=== PATIENT | female | born 1975 | race African-American/Black ===

== ENCOUNTER 2017-07-27 10:28 | Emergency (ER) | payer OTHER ==
[~2017-07-27] VITALS: Ht 167.6 cm; Wt 86.4 kg
[2017-07-27] MEDS ORDERED: DiphenhydrAMINE HCL 50 MG/ML VIAL ONE (10:57)
[2017-07-27] MEDS ORDERED: LORazepam 2 MG/ML VIAL ONE (10:57)
[2017-07-27] MEDS ORDERED: HALOPERIDOL LACTATE 5 MG/ML VIAL ONE (10:57)
[2017-07-27] MEDS ORDERED: HALOPERIDOL LACTATE 5 MG/ML VIAL IM ONE (11:15)
[2017-07-27] MEDS ORDERED: LORazepam 2 MG/ML VIAL IM ONE (11:15)
[2017-07-27] MEDS ORDERED: DiphenhydrAMINE HCL 50 MG/ML VIAL IM ONE (11:15)
[2017-07-27 12:19] LABS: BASOPHILS % (AUTO) 0.8 % (0.0-2.0); EOSINOPHILS % (AUTO) 0.4 % (1.0-6.0); HEMOGLOBIN 7.9 g/dL (12.0-16.0); LYMPHOCYTES # (AUTO) 2.2 K/uL (1.0-4.8); LYMPHOCYTES % (AUTO) 43.6 % (22.0-44.0); MEAN CORPUSCULAR HGB CONC 33.1 G/dL (31.0-37.0); MEAN CORPUSCULAR VOLUME 82 fL (80-100); MONOCYTES # (AUTO) 0.6 K/uL (0.1-1.0); MONOCYTES % (AUTO) 10.9 % (2.0-9.0); NEUTROPHILS # (AUTO) 2.3 K/uL (1.8-7.7); NEUTROPHILS % (AUTO) 44.3 % (40.0-70.0); PLATELET COUNT (AUTO) 86 K/uL (150-450); RED BLOOD CELL COUNT(AUTO) 2.94 MIL/uL (4.00-5.20); RED CELL DISTRIBUTION WIDTH 19.3 % (11.5-14.5); WHITE BLOOD COUNT (AUTO) 5.1 K/uL (4.5-11.0)
[2017-07-27 12:29] LABS: RBC MORPHOLOGY COMMENT ABNORMAL RBC MORPH
[2017-07-27 12:37] LABS: ANION GAP 12 mmol/L (8-16); CALCIUM, TOTAL 8.1 mg/dL (8.8-10.5); CARBON DIOXIDE 23 mmol/L (22-29); CHLORIDE 105 mmol/L (98-107); CREATININE 0.74 mg/dL (0.60-1.30); GLOMERULAR FILTR. RATE CALC > 60 mL/min (>60); POTASSIUM 3.2 mmol/L (3.5-5.1); SODIUM SERUM 140 mmol/L (136-145); UREA NITROGEN, BLOOD 6 mg/dL (7-18)
[2017-07-27 12:42] LABS: ALANINE AMINOTRANSFERASE 28 U/L (12-78); ALBUMIN 2.1 g/dL (3.4-5.0); ASPARTATE AMINOTRANSFERASE 75 U/L (15-37); BILIRUBIN,TOTAL 2.5 mg/dL (0.1-1.0); TOTAL PROTEIN, SERUM 8.2 g/dL (6.4-8.2)
[2017-07-27] MEDS ORDERED: VANCOMYCIN HCL 1 GM/D5% WATER 200 ML IV ONE (15:15)
[2017-07-27] MEDS ORDERED: MAGNESIUM SULFATE 2 GM, MVI, ADULT NO.1 WITH VIT K 10 ML, THIAMINE HCL 100 MG, FOLIC AC... IV ONE ×5 (16:30)
[2017-07-27 17:18] LABS: GLUCOSE,POINT OF CARE 65 MG/DL (70-110)
[2017-07-27] MEDS ORDERED: POTASSIUM CHLORIDE 20 MEQ ER TABLET PO ONE (17:30)
[2017-07-27 19:52] VITALS: BP 117/51
[2017-07-27 20:40] LABS: GLUCOSE,POINT OF CARE 111 MG/DL (70-110)
== END 2017-07-27 19:44 | disposition home or self-care (01) ==
LOC: EMS 10:35
DX: F10.129 Alcohol abuse with intoxication, unspecified (principal); F14.10 Cocaine abuse, uncomplicated; F17.200 Nicotine dependence, unspecified, uncomplicated; E11.9 Type 2 diabetes mellitus without complications; Y90.8 Blood alcohol level of 240 mg/100 ml or more
CPT/HCPCS: 36415; 80053; 80307; 82962; 84703; 85025; 96365; 96366; 96372; 99285; 99406; G0480; J1200; J1630; J2060; J3411; J3475; J3490 ×2; J7030; J3370

== ENCOUNTER 2021-11-30 00:18 | Emergency (ER) | payer OTHER ==
[~2021-11-30] VITALS: Ht 160 cm; Wt 81.8 kg
[2021-11-30] MEDS ORDERED: LIDOCAINE 5% TRANSDERMAL PATCH TD ONE (01:45)
[2021-11-30] MEDS ORDERED: ACETAMINOPHEN 500 MG TABLET PO ONE (01:45)
[2021-11-30] MEDS ORDERED: IBUPROFEN 600 MG TABLET PO ONE (01:45)
[2021-11-30 04:00] VITALS: BP 140/102
== END 2021-11-30 06:39 | disposition home or self-care (01) ==
LOC: EMS 00:19
DX: M13.861 Other specified arthritis, right knee (principal); M54.50 Low back pain, unspecified; M25.551 Pain in right hip; F20.9 Schizophrenia, unspecified; F17.210 Nicotine dependence, cigarettes, uncomplicated; F19.90 Other psychoactive substance use, unspecified, uncomplicated
CPT/HCPCS: 73502; 73552; 99284

== ENCOUNTER 2022-03-04 23:21 | Inpatient (IN) | payer OTHER ==
[~2022-03-04] VITALS: Ht 160 cm; Wt 69.9 kg
[~2022-03-04 23:21] MED LIST: BUPR-317 PO; CARI3CAP PO; FLUO10CA24 PO; HYDR-4527 PO; TRAZ-252 PO
[2022-03-05] MEDS ORDERED: INSLAN SQ (00:40)
[2022-03-05] MEDS ORDERED: OXYC-490 PO (00:40)
[2022-03-05] MEDS ORDERED: MAGN-169 PO (00:40)
[2022-03-05] MEDS ORDERED: ACET-784 PO (00:40)
[2022-03-05] MEDS ORDERED: OLAN5TAB52 PO (00:40)
[2022-03-05] MEDS ORDERED: INSU100V SQ (00:40)
[2022-03-05] MEDS ORDERED: BUPR-290 PO (00:40)
[2022-03-05] MEDS ORDERED: NA P133E4 PR (00:40)
[2022-03-05] MEDS ORDERED: BISA10SU11 PR (00:40)
[2022-03-05 01:14] LABS: BASOPHILS % (AUTO) 0.6 % (0.0-2.0); HEMATOCRIT 23.8 % (36-46); HEMOGLOBIN 7.9 g/dL (12.0-16.0); LYMPHOCYTES # (AUTO) 1.1 K/uL (1.0-4.8); LYMPHOCYTES % (AUTO) 17.3 % (22.0-44.0); MEAN CORPUSCULAR HEMOGLOBIN 27.3 pg (26.0-34.0); MEAN CORPUSCULAR VOLUME 83 fL (80-100); MONOCYTES # (AUTO) 0.6 K/uL (0.1-1.0); NEUTROPHILS # (AUTO) 4.3 K/uL (1.8-7.7); NEUTROPHILS % (AUTO) 71.1 % (40.0-70.0); RED BLOOD CELL COUNT(AUTO) 2.88 MIL/uL (4.00-5.20); RED CELL DISTRIBUTION WIDTH 17.6 % (11.5-14.5)
[2022-03-05 01:16] LABS: ANION GAP 5 mmol/L (8-16); CARBON DIOXIDE 22 mmol/L (22-29); CHLORIDE 107 mmol/L (98-107); GLOMERULAR FILTR. RATE CALC 39 mL/min (>60); GLUCOSE,RANDOM 126 mg/dL (70-110); POTASSIUM 3.7 mmol/L (3.5-5.1); SODIUM SERUM 134 mmol/L (136-145); UREA NITROGEN, BLOOD 23 mg/dL (7-18)
[2022-03-05 01:20] LABS: INR 1.5 (0.9-1.1); PROTHROMBIN TIME 16.1 SEC (9.4-11.6)
[2022-03-05 01:22] LABS: ALANINE AMINOTRANSFERASE 454 U/L (12-78); ALBUMIN 1.5 g/dL (3.4-5.0); ALKALINE PHOSPHATASE 422 U/L (46-116); ASPARTATE AMINOTRANSFERASE 778 U/L (15-37); BILIRUBIN,TOTAL 6.6 mg/dL (0.1-1.0); LIPASE 355 U/L (73-393); TOTAL PROTEIN, SERUM 9.8 g/dL (6.4-8.2)
[2022-03-05 01:25] LABS: PLATELET COUNT (AUTO) 75 K/uL (150-450)
[2022-03-05 02:10] LABS: ACETAMINOPHEN < 2 mcg/mL (10-30)
[2022-03-05] MEDS ORDERED: ONDANSETRON HCL 4 MG/2 ML VIAL IVP PRN ×2 (03:15→15:15)
[2022-03-05] MEDS ORDERED: MORPHINE SULFATE 2 MG/ML SYRINGE IVP PRN ×2 (03:15→15:15)
[2022-03-05 03:27] LABS: COVID AG,FIA SOURCE NASOPHARYNGEAL
[2022-03-05 06:36] LABS: GLUCOMETER DEV NAME(LOC) ERT.5; GLUCOSE,POINT OF CARE 94 MG/DL (70-110)
[2022-03-05 08:06] VITALS: BP 150/95
[2022-03-05] MEDS ORDERED: BUPR-50 PO (11:51)
[2022-03-05 12:46] LABS: GLUCOMETER DEV NAME(LOC) 6N.2; GLUCOSE,POINT OF CARE 124 MG/DL (70-110)
[2022-03-05] MEDS ORDERED: BISACODYL 10 MG RECTAL RECTAL SUPPOSITORY PR PRN (15:15)
[2022-03-05] MEDS ORDERED: ACETAMINOPHEN 325 MG TABLET PO PRN (15:15)
[2022-03-05] MEDS ORDERED: MAGNESIUM HYDROXIDE SUSPENSION 30 ML UDCUP PO PRN (15:15)
[2022-03-05] MEDS ORDERED: HYDROCODONE/ACETAMINOPHEN 5-325 MG TABLET PO PRN (15:15)
[2022-03-05 16:00] VITALS: BP 145/91
[2022-03-05] MEDS ORDERED: VANCOMYCIN HCL 1 GM in DEXTROSE 5%-WATER 250 ML IV ONE (16:00)
[2022-03-05] MEDS ORDERED: SODIUM CHLORIDE 0.9% 500 ML IV ONE (16:09)
[2022-03-05 16:46] LABS: PHOSPHORUS 3.9 mg/dL (2.5-4.9)
[2022-03-05] MEDS: HEPARIN SODIUM,PORCINE 5,000 UNITS/ML VIAL SQ SCH ×2 (17:00→23:16)
[2022-03-05 20:29] VITALS: BP 135/71
[2022-03-05] MEDS: OLANZapine 5 MG TABLET PO SCH (20:32)
[2022-03-05] MEDS: DOCUSATE SODIUM 100 MG CAPSULE PO SCH (20:32)
[2022-03-05] MEDS: TraZODone HCL 50 MG TABLET PO SCH (20:32)
[2022-03-05] MEDS: INSULIN GLARGINE,HUM.REC.ANLOG 100 UNITS/ML SQ SCH (20:38)
[2022-03-05] MEDS: ZOLPIDEM TARTRATE 5 MG TABLET PO PRN (23:25)
[2022-03-05 23:41] LABS: GLUCOMETER DEV NAME(LOC) 6N.2; GLUCOSE,POINT OF CARE 114 MG/DL (70-110)
[2022-03-06 04:13] VITALS: BP 107/65
[2022-03-06 07:06] LABS: HEPATITIS C AB (EIA) 0.1 s/co ratio (0.0-0.9)
[2022-03-06 07:55] VITALS: BP 119/68
[2022-03-06] MEDS: DOCUSATE SODIUM 100 MG CAPSULE PO SCH ×2 (09:00→21:00)
[2022-03-06] MEDS: PANTOPRAZOLE SODIUM 40 MG DR TABLET PO SCH (09:39)
[2022-03-06] MEDS: HEPARIN SODIUM,PORCINE 5,000 UNITS/ML VIAL SQ SCH ×3 (09:39→23:31)
[2022-03-06] MEDS: BuPROPion HCL XL 150 MG ER TABLET PO SCH (09:39)
[2022-03-06] MEDS: OLANZapine 5 MG TABLET PO SCH ×2 (09:39→20:08)
[2022-03-06] MEDS ORDERED: VANCOMYCIN HCL 1 GM in DEXTROSE 5%-WATER 250 ML IV PRN (09:45)
[2022-03-06 11:02] LABS: MONOCYTES # (AUTO) 0.5 K/uL (0.1-1.0); NEUTROPHILS # (AUTO) 3.6 K/uL (1.8-7.7)
[2022-03-06 11:07] LABS: BASOPHILS % (AUTO) 0.5 % (0.0-2.0); EOSINOPHILS % (AUTO) 2.1 % (1.0-6.0); HEMATOCRIT 21.7 % (36-46); HEMOGLOBIN 7.3 g/dL (12.0-16.0); MEAN CORPUSCULAR HGB CONC 33.5 G/dL (31.0-37.0); MEAN CORPUSCULAR VOLUME 84 fL (80-100); NEUTROPHILS % (AUTO) 69.4 % (40.0-70.0); RED CELL DISTRIBUTION WIDTH 18.1 % (11.5-14.5)
[2022-03-06 11:23] LABS: PLATELET COUNT (AUTO) 67 K/uL (150-450)
[2022-03-06 11:36] LABS: ALBUMIN 1.3 g/dL (3.4-5.0); BILIRUBIN,TOTAL 8.1 mg/dL (0.1-1.0); CALCIUM, TOTAL 7.8 mg/dL (8.8-10.5); CREATININE 1.53 mg/dL (0.60-1.30); POTASSIUM 3.7 mmol/L (3.5-5.1); TOTAL PROTEIN, SERUM 8.9 g/dL (6.4-8.2)
[2022-03-06] MEDS: INSULIN LISPRO 100 UNITS/ML SQ PRN ×3 (12:25→20:09)
[2022-03-06 13:11] LABS: GLUCOMETER DEV NAME(LOC) 6N.2; GLUCOSE,POINT OF CARE 224 MG/DL (70-110)
[2022-03-06] MEDS ORDERED: MEBROFENIN TC99M/MCL ISOTOPE 1 EA INJ INJ ONE (14:00)
[2022-03-06 15:30] VITALS: BP 142/74
[2022-03-06] MEDS: VANCOMYCIN HCL 750 MG in DEXTROSE 5%-WATER 250 ML IV SCH (16:02)
[2022-03-06 16:16] LABS: INR 1.6 (0.9-1.1); PROTHROMBIN TIME 16.4 SEC (9.4-11.6)
[2022-03-06 16:24] LABS: % IRON SATURATION 123.2 % (22-44)
[2022-03-06 19:31] VITALS: BP 130/88
[2022-03-06] MEDS: TraZODone HCL 50 MG TABLET PO SCH (20:08)
[2022-03-06] MEDS: INSULIN GLARGINE,HUM.REC.ANLOG 100 UNITS/ML SQ SCH (20:11)
[2022-03-06 21:11] LABS: GLUCOMETER DEV NAME(LOC) 6N.1; GLUCOSE,POINT OF CARE 243 MG/DL (70-110)
[2022-03-07 03:21] LABS: GLUCOMETER DEV NAME(LOC) 6N.2; GLUCOSE,POINT OF CARE 260 MG/DL (70-110)
[2022-03-07] MEDS: INSULIN LISPRO 100 UNITS/ML SQ PRN ×4 (06:20→20:41)
[2022-03-07 07:06] LABS: GLUCOMETER DEV NAME(LOC) 6N.1; GLUCOSE,POINT OF CARE 176 MG/DL (70-110)
[2022-03-07] MEDS: HEPARIN SODIUM,PORCINE 5,000 UNITS/ML VIAL SQ SCH ×2 (08:00→08:35)
[2022-03-07 08:03] VITALS: BP 144/79
[2022-03-07] MEDS: OLANZapine 5 MG TABLET PO SCH ×2 (08:34→20:40)
[2022-03-07] MEDS: BuPROPion HCL XL 150 MG ER TABLET PO SCH (08:34)
[2022-03-07] MEDS: PANTOPRAZOLE SODIUM 40 MG DR TABLET PO SCH (08:34)
[2022-03-07] MEDS: VANCOMYCIN HCL 750 MG in DEXTROSE 5%-WATER 250 ML IV SCH (08:35)
[2022-03-07] MEDS: DOCUSATE SODIUM 100 MG CAPSULE PO SCH ×2 (08:35→20:39)
[2022-03-07 09:34] LABS: BASOPHILS % (AUTO) 0.4 % (0.0-2.0); EOSINOPHILS % (AUTO) 2.6 % (1.0-6.0); HEMATOCRIT 22.2 % (36-46); HEMOGLOBIN 7.4 g/dL (12.0-16.0); LYMPHOCYTES # (AUTO) 1.2 K/uL (1.0-4.8); LYMPHOCYTES % (AUTO) 20.5 % (22.0-44.0); MEAN CORPUSCULAR HGB CONC 33.5 G/dL (31.0-37.0); MEAN CORPUSCULAR VOLUME 84 fL (80-100); MONOCYTES # (AUTO) 0.6 K/uL (0.1-1.0); MONOCYTES % (AUTO) 10.1 % (2.0-9.0); NEUTROPHILS # (AUTO) 3.8 K/uL (1.8-7.7); NEUTROPHILS % (AUTO) 66.4 % (40.0-70.0); PLATELET COUNT (AUTO) 72 K/uL (150-450); RED BLOOD CELL COUNT(AUTO) 2.65 MIL/uL (4.00-5.20); RED CELL DISTRIBUTION WIDTH 18.1 % (11.5-14.5)
[2022-03-07 09:41] LABS: CALCIUM, TOTAL 7.9 mg/dL (8.8-10.5); CREATININE 1.62 mg/dL (0.60-1.30); POTASSIUM 4.1 mmol/L (3.5-5.1)
[2022-03-07 12:41] LABS: GLUCOMETER DEV NAME(LOC) 6N.2; GLUCOSE,POINT OF CARE 181 MG/DL (70-110)
[2022-03-07] MEDS: TraZODone HCL 50 MG TABLET PO SCH (20:40)
[2022-03-07] MEDS: INSULIN GLARGINE,HUM.REC.ANLOG 100 UNITS/ML SQ SCH (20:42)
[2022-03-07 21:00] VITALS: BP 140/84
[2022-03-07 21:01] LABS: GLUCOMETER DEV NAME(LOC) 6N.1; GLUCOSE,POINT OF CARE 212 MG/DL (70-110)
[2022-03-07 21:01] LABS: GLUCOMETER DEV NAME(LOC) 6N.1; GLUCOSE,POINT OF CARE 270 MG/DL (70-110)
[2022-03-08 05:40] VITALS: BP 116/68
[2022-03-08 06:01] LABS: GLUCOMETER DEV NAME(LOC) 6N.1; GLUCOSE,POINT OF CARE 82 MG/DL (70-110)
[2022-03-08 08:00] VITALS: BP 121/61
[2022-03-08] MEDS: DOCUSATE SODIUM 100 MG CAPSULE PO SCH ×2 (09:00→20:15)
[2022-03-08] MEDS: OLANZapine 5 MG TABLET PO SCH ×2 (09:20→20:15)
[2022-03-08] MEDS: BuPROPion HCL XL 150 MG ER TABLET PO SCH (09:20)
[2022-03-08] MEDS: VANCOMYCIN HCL 750 MG in DEXTROSE 5%-WATER 250 ML IV SCH (09:20)
[2022-03-08] MEDS: PANTOPRAZOLE SODIUM 40 MG DR TABLET PO SCH (09:20)
[2022-03-08 09:41] LABS: BASOPHILS % (AUTO) 0.4 % (0.0-2.0); EOSINOPHILS % (AUTO) 2.4 % (1.0-6.0); LYMPHOCYTES # (AUTO) 0.8 K/uL (1.0-4.8); LYMPHOCYTES % (AUTO) 16.3 % (22.0-44.0); MEAN CORPUSCULAR HEMOGLOBIN 28.1 pg (26.0-34.0); MEAN CORPUSCULAR HGB CONC 32.9 G/dL (31.0-37.0); MEAN CORPUSCULAR VOLUME 85 fL (80-100); MONOCYTES # (AUTO) 0.5 K/uL (0.1-1.0); MONOCYTES % (AUTO) 9.4 % (2.0-9.0); NEUTROPHILS # (AUTO) 3.7 K/uL (1.8-7.7); NEUTROPHILS % (AUTO) 71.5 % (40.0-70.0); PLATELET COUNT (AUTO) 65 K/uL (150-450); RED BLOOD CELL COUNT(AUTO) 2.45 MIL/uL (4.00-5.20); RED CELL DISTRIBUTION WIDTH 18.2 % (11.5-14.5)
[2022-03-08 09:48] LABS: HEMATOCRIT 20.9 % (36-46); HEMOGLOBIN 6.9 g/dL (12.0-16.0)
[2022-03-08 09:57] LABS: ALBUMIN 1.3 g/dL (3.4-5.0); BILIRUBIN,TOTAL 9.5 mg/dL (0.1-1.0); CALCIUM, TOTAL 8.1 mg/dL (8.8-10.5); CREATININE 1.85 mg/dL (0.60-1.30); POTASSIUM 4.7 mmol/L (3.5-5.1); TOTAL PROTEIN, SERUM 8.9 g/dL (6.4-8.2)
[2022-03-08] MEDS: PANTOPRAZOLE SODIUM 40 MG/VIAL IVP SCH ×2 (10:15→20:15)
[2022-03-08 10:21] LABS: VANCOMYCIN,RANDOM 19.9 mcg/mL (25.0-50.0)
[2022-03-08 11:45] LABS: INR 1.7 (0.9-1.1); PROTHROMBIN TIME 17.5 SEC (9.4-11.6)
[2022-03-08] MEDS: INSULIN LISPRO 100 UNITS/ML SQ PRN ×3 (12:03→20:16)
[2022-03-08] MEDS: ALBUMIN HUMAN 25%-50GM/200ML 200 ML IV SCH (12:12)
[2022-03-08 16:00] VITALS: BP 131/68
[2022-03-08 19:55] VITALS: BP 138/62
[2022-03-08 20:01] LABS: GLUCOMETER DEV NAME(LOC) 6N.1; GLUCOSE,POINT OF CARE 234 MG/DL (70-110)
[2022-03-08 20:15] LABS: APPEARANCE,URINE TURBID (CLEAR); GLUCOSE, URINE (UA) NEGATIVE (NEGATIVE); KETONES,URINE NEGATIVE (NEGATIVE); LEUKOCYTE ESTERASE ,URINE LARGE (NEGATIVE); NITRATE,URINE NEGATIVE (NEGATIVE); OCCULT BLOOD,URINE MODERATE (NEGATIVE); PH,URINE 5.5 (5.0-8.0); PROTEIN,URINE 30-70 mg/dL (NEGATIVE); SPECIFIC GRAVITIY, URINE 1.009 (1.003-1.030); UROBILINOGEN,URINE <=1.0 mg/dL (<=1.0)
[2022-03-08] MEDS: TraZODone HCL 50 MG TABLET PO SCH (20:15)
[2022-03-08 20:16] LABS: BILIRUBIN,URINE SMALL (NEGATIVE)
[2022-03-08] MEDS: INSULIN GLARGINE,HUM.REC.ANLOG 100 UNITS/ML SQ SCH (20:17)
[2022-03-08 20:22] LABS: AMPHET/METH SCREEN,URINE NEGATIVE (NEGATIVE); BARBITURATE SCREEN, URINE NEGATIVE (NEGATIVE); BENZODIAZEPINES SCREEN,URINE NEGATIVE (NEGATIVE); CANNABINOID SCREEN,URINE NEGATIVE (NEGATIVE); COCAINE SCREEN,URINE NEGATIVE (NEGATIVE); METHADONE SCREEN, URINE NEGATIVE (NEGATIVE); OPIATE SCREEN,URINE NEGATIVE (NEGATIVE); SODIUM,URINE RANDOM 80 mmol/l (20-110)
[2022-03-08 20:23] LABS: PHENCYCLIDINE SCREEN,URINE NEGATIVE (NEGATIVE)
[2022-03-08 20:29] LABS: BACTERIA,URINE Moderate /HPF (None Seen); WBC,URINE 26-50 /HPF (0-5)
[2022-03-09] VITALS (11 sets, daily range): BP systolic 124–145; BP diastolic 68–85
[2022-03-09 05:46] LABS: GLUCOMETER DEV NAME(LOC) 6N.2; GLUCOSE,POINT OF CARE 191 MG/DL (70-110)
[2022-03-09 05:46] LABS: GLUCOMETER DEV NAME(LOC) 6N.2; GLUCOSE,POINT OF CARE 206 MG/DL (70-110)
[2022-03-09] MEDS: INSULIN LISPRO 100 UNITS/ML SQ PRN ×4 (05:49→20:11)
[2022-03-09 08:11] LABS: GLUCOMETER DEV NAME(LOC) 6N.1; GLUCOSE,POINT OF CARE 173 MG/DL (70-110)
[2022-03-09] MEDS: BuPROPion HCL XL 150 MG ER TABLET PO SCH (08:12)
[2022-03-09] MEDS: PANTOPRAZOLE SODIUM 40 MG/VIAL IVP SCH ×2 (08:12→20:02)
[2022-03-09] MEDS: DOCUSATE SODIUM 100 MG CAPSULE PO SCH ×2 (08:12→20:07)
[2022-03-09] MEDS: OLANZapine 5 MG TABLET PO SCH ×2 (08:12→20:07)
[2022-03-09] MEDS: VANCOMYCIN HCL 750 MG in DEXTROSE 5%-WATER 250 ML IV SCH (08:14)
[2022-03-09 08:42] LABS: CALCIUM, TOTAL 7.6 mg/dL (8.8-10.5); CREATININE 1.28 mg/dL (0.60-1.30); POTASSIUM 3.7 mmol/L (3.5-5.1); VANCOMYCIN,RANDOM 18.4 mcg/mL (25.0-50.0)
[2022-03-09 09:56] LABS: INR 1.8 (0.9-1.1)
[2022-03-09 10:48] LABS: ALBUMIN 1.8 g/dL (3.4-5.0); BILIRUBIN,DIRECT 9.2 mg/dL (0.00-0.20); BILIRUBIN,TOTAL 11.4 mg/dL (0.1-1.0); TOTAL PROTEIN, SERUM 8.2 g/dL (6.4-8.2)
[2022-03-09] MEDS: ALBUMIN HUMAN 25%-50GM/200ML 200 ML IV SCH (12:31)
[2022-03-09] MEDS: CefTAZidime PENTAHYDRATE 2 GM in DEXTROSE 5%-WATER 50 ML IV SCH ×2 (12:31→20:02)
[2022-03-09 14:27] LABS: GLUCOMETER DEV NAME(LOC) 6N.1; GLUCOSE,POINT OF CARE 207 MG/DL (70-110)
[2022-03-09] MEDS: LACTULOSE 20 GM/30 ML SOLUTION UDCUP PO SCH ×2 (14:34→20:07)
[2022-03-09] MEDS: TENOFOVIR DISOPROXIL FUMARATE 300 MG TABLET PO SCH (14:34)
[2022-03-09] MEDS ORDERED: SODIUM CHLORIDE 0.9% 1,000 ML ONE (15:12)
[2022-03-09] MEDS: TraZODone HCL 50 MG TABLET PO SCH (20:07)
[2022-03-09] MEDS: INSULIN GLARGINE,HUM.REC.ANLOG 100 UNITS/ML SQ SCH (20:10)
[2022-03-09] MEDS ORDERED: SODIUM CHLORIDE 0.9% 500 ML IV ONE (22:21)
[2022-03-09 23:51] LABS: GLUCOMETER DEV NAME(LOC) 6N.1; GLUCOSE,POINT OF CARE 221 MG/DL (70-110)
[2022-03-10] MEDS: CefTAZidime PENTAHYDRATE 2 GM in DEXTROSE 5%-WATER 50 ML IV SCH ×3 (03:39→22:37)
[2022-03-10 04:38] VITALS: BP 137/79
[2022-03-10 04:51] LABS: GLUCOMETER DEV NAME(LOC) 6N.2; GLUCOSE,POINT OF CARE 371 MG/DL (70-110)
[2022-03-10 06:36] LABS: GLUCOMETER DEV NAME(LOC) 6N.2; GLUCOSE,POINT OF CARE 104 MG/DL (70-110)
[2022-03-10 07:32] LABS: ALBUMIN 1.9 g/dL (3.4-5.0); BILIRUBIN,DIRECT 11.4 mg/dL (0.00-0.20); BILIRUBIN,TOTAL 14.7 mg/dL (0.1-1.0); CALCIUM, TOTAL 8.5 mg/dL (8.8-10.5); CREATININE 1.62 mg/dL (0.60-1.30); POTASSIUM 4.1 mmol/L (3.5-5.1); TOTAL PROTEIN, SERUM 8.7 g/dL (6.4-8.2)
[2022-03-10 07:36] LABS: INR 1.8 (0.9-1.1); PROTHROMBIN TIME 18.8 SEC (9.4-11.6)
[2022-03-10 08:00] VITALS: BP 131/68
[2022-03-10] MEDS: PANTOPRAZOLE SODIUM 40 MG/VIAL IVP SCH ×2 (08:43→21:57)
[2022-03-10] MEDS: LACTULOSE 20 GM/30 ML SOLUTION UDCUP PO SCH ×2 (08:44→21:55)
[2022-03-10] MEDS: TENOFOVIR DISOPROXIL FUMARATE 300 MG TABLET PO SCH (08:44)
[2022-03-10] MEDS: OLANZapine 5 MG TABLET PO SCH ×2 (08:44→21:55)
[2022-03-10] MEDS: DOCUSATE SODIUM 100 MG CAPSULE PO SCH ×2 (08:44→21:56)
[2022-03-10] MEDS: BuPROPion HCL XL 150 MG ER TABLET PO SCH (08:44)
[2022-03-10 08:48] LABS: BASOPHILS % (AUTO) 0.4 % (0.0-2.0); EOSINOPHILS % (AUTO) 3.3 % (1.0-6.0); HEMATOCRIT 23.8 % (36-46); LYMPHOCYTES # (AUTO) 1.2 K/uL (1.0-4.8); LYMPHOCYTES % (AUTO) 18.6 % (22.0-44.0); MEAN CORPUSCULAR HEMOGLOBIN 29.2 pg (26.0-34.0); MEAN CORPUSCULAR HGB CONC 33.5 G/dL (31.0-37.0); MEAN CORPUSCULAR VOLUME 87 fL (80-100); MONOCYTES # (AUTO) 0.7 K/uL (0.1-1.0); MONOCYTES % (AUTO) 10.5 % (2.0-9.0); NEUTROPHILS # (AUTO) 4.4 K/uL (1.8-7.7); NEUTROPHILS % (AUTO) 67.2 % (40.0-70.0); PLATELET COUNT (AUTO) 67 K/uL (150-450); RED BLOOD CELL COUNT(AUTO) 2.73 MIL/uL (4.00-5.20); RED CELL DISTRIBUTION WIDTH 17.8 % (11.5-14.5)
[2022-03-10] MEDS: ALBUMIN HUMAN 25%-50GM/200ML 200 ML IV SCH (11:57)
[2022-03-10] MEDS: RIFAXIMIN 550 MG TABLET PO SCH ×2 (13:41→21:56)
[2022-03-10 15:44] VITALS: BP 136/87
[2022-03-10] MEDS: INSULIN LISPRO 100 UNITS/ML SQ PRN ×2 (18:13→22:14)
[2022-03-10 20:11] LABS: GLUCOMETER DEV NAME(LOC) 6N.1; GLUCOSE,POINT OF CARE 149 MG/DL (70-110)
[2022-03-10 20:11] LABS: GLUCOMETER DEV NAME(LOC) 6N.1; GLUCOSE,POINT OF CARE 134 MG/DL (70-110)
[2022-03-10 21:54] VITALS: BP 136/84
[2022-03-10] MEDS: TraZODone HCL 50 MG TABLET PO SCH (21:56)
[2022-03-10] MEDS: INSULIN GLARGINE,HUM.REC.ANLOG 100 UNITS/ML SQ SCH (22:14)
[2022-03-11 05:31] LABS: GLUCOMETER DEV NAME(LOC) 6N.1; GLUCOSE,POINT OF CARE 192 MG/DL (70-110)
[2022-03-11] MEDS: CefTAZidime PENTAHYDRATE 2 GM in DEXTROSE 5%-WATER 50 ML IV SCH (06:10)
[2022-03-11] MEDS: INSULIN LISPRO 100 UNITS/ML SQ PRN ×3 (06:15→21:46)
[2022-03-11 06:57] LABS: INR 1.9 (0.9-1.1); PROTHROMBIN TIME 19.3 SEC (9.4-11.6)
[2022-03-11 06:58] LABS: CALCIUM, TOTAL 8.8 mg/dL (8.8-10.5); CREATININE 1.48 mg/dL (0.60-1.30); POTASSIUM 4.2 mmol/L (3.5-5.1)
[2022-03-11 07:01] VITALS: BP 156/59
[2022-03-11] MEDS: TENOFOVIR DISOPROXIL FUMARATE 300 MG TABLET PO SCH (08:45)
[2022-03-11] MEDS: BuPROPion HCL XL 150 MG ER TABLET PO SCH (08:45)
[2022-03-11] MEDS: OLANZapine 5 MG TABLET PO SCH ×2 (08:45→21:25)
[2022-03-11] MEDS: RIFAXIMIN 550 MG TABLET PO SCH ×2 (08:45→21:25)
[2022-03-11] MEDS: DOCUSATE SODIUM 100 MG CAPSULE PO SCH ×2 (08:45→21:00)
[2022-03-11] MEDS: PANTOPRAZOLE SODIUM 40 MG/VIAL IVP SCH ×2 (08:46→21:24)
[2022-03-11] MEDS: LACTULOSE 20 GM/30 ML SOLUTION UDCUP PO SCH ×2 (08:49→21:24)
[2022-03-11] MEDS: ALBUMIN HUMAN 25%-50GM/200ML 200 ML IV SCH (11:23)
[2022-03-11 11:50] LABS: ALBUMIN 2.3 g/dL (3.4-5.0); BILIRUBIN,DIRECT 12.4 mg/dL (0.00-0.20); BILIRUBIN,TOTAL 17.2 mg/dL (0.1-1.0)
[2022-03-11] MEDS ORDERED: SODIUM CHLORIDE 0.9% 500 ML IV ONE (11:59)
[2022-03-11 16:36] VITALS: BP 138/74
[2022-03-11 20:00] LABS: GLUCOMETER DEV NAME(LOC) 6N.1; GLUCOSE,POINT OF CARE 179 MG/DL (70-110)
[2022-03-11 20:01] LABS: GLUCOMETER DEV NAME(LOC) 6N.1; GLUCOSE,POINT OF CARE 133 MG/DL (70-110)
[2022-03-11 20:01] LABS: GLUCOMETER DEV NAME(LOC) 6N.1; GLUCOSE,POINT OF CARE 254 MG/DL (70-110)
[2022-03-11 20:10] VITALS: BP 140/83
[2022-03-11] MEDS: TraZODone HCL 50 MG TABLET PO SCH (21:25)
[2022-03-11] MEDS: INSULIN GLARGINE,HUM.REC.ANLOG 100 UNITS/ML SQ SCH (21:46)
[2022-03-11 23:36] LABS: GLUCOMETER DEV NAME(LOC) 6N.1; GLUCOSE,POINT OF CARE 198 MG/DL (70-110)
[2022-03-12 03:51] VITALS: BP 133/85
[2022-03-12 06:42] LABS: GLUCOMETER DEV NAME(LOC) 6N.2; GLUCOSE,POINT OF CARE 123 MG/DL (70-110)
[2022-03-12 08:02] VITALS: BP 134/86
[2022-03-12] MEDS ORDERED: GADOTERATE MEGLUMINE 10 MMOL/20 ML VIAL IVP ONE (08:05)
[2022-03-12] MEDS ORDERED: VANCOMYCIN HCL 1.25 GM in DEXTROSE 5%-WATER 250 ML IV ONE (08:30)
[2022-03-12 08:50] LABS: INR 1.9 (0.9-1.1); PROTHROMBIN TIME 19.8 SEC (9.4-11.6)
[2022-03-12 09:00] LABS: ALBUMIN 2.5 g/dL (3.4-5.0); BILIRUBIN,TOTAL 20.2 mg/dL (0.1-1.0); CALCIUM, TOTAL 8.9 mg/dL (8.8-10.5); CREATININE 1.44 mg/dL (0.60-1.30); POTASSIUM 4.2 mmol/L (3.5-5.1); TOTAL PROTEIN, SERUM 8.9 g/dL (6.4-8.2)
[2022-03-12] MEDS: PANTOPRAZOLE SODIUM 40 MG/VIAL IVP SCH ×2 (09:25→21:57)
[2022-03-12] MEDS: BuPROPion HCL XL 150 MG ER TABLET PO SCH (09:26)
[2022-03-12] MEDS: RIFAXIMIN 550 MG TABLET PO SCH ×2 (09:26→21:57)
[2022-03-12] MEDS: TENOFOVIR DISOPROXIL FUMARATE 300 MG TABLET PO SCH (09:26)
[2022-03-12] MEDS: LACTULOSE 20 GM/30 ML SOLUTION UDCUP PO SCH ×2 (10:39→21:00)
[2022-03-12] MEDS: DOCUSATE SODIUM 100 MG CAPSULE PO SCH ×2 (10:39→21:00)
[2022-03-12] MEDS: OLANZapine 5 MG TABLET PO SCH ×2 (10:39→21:58)
[2022-03-12] MEDS: INSULIN LISPRO 100 UNITS/ML SQ PRN ×2 (11:25→22:03)
[2022-03-12] MEDS: ALBUMIN HUMAN 25%-50GM/200ML 200 ML IV SCH (12:35)
[2022-03-12 13:31] LABS: GLUCOMETER DEV NAME(LOC) 6N.2; GLUCOSE,POINT OF CARE 228 MG/DL (70-110)
[2022-03-12] MEDS ORDERED: SODIUM CHLORIDE 0.9% 500 ML IV ONE (15:31)
[2022-03-12 15:34] VITALS: BP 130/84
[2022-03-12 16:06] LABS: ALT (SGPT), REF. LAB 357 IU/L (0-32)
[2022-03-12 18:12] LABS: GLUCOMETER DEV NAME(LOC) 6N.1; GLUCOSE,POINT OF CARE 113 MG/DL (70-110)
[2022-03-12 21:41] VITALS: BP 118/72
[2022-03-12] MEDS: TraZODone HCL 50 MG TABLET PO SCH (21:57)
[2022-03-12] MEDS: INSULIN GLARGINE,HUM.REC.ANLOG 100 UNITS/ML SQ SCH (22:04)
[2022-03-12 23:51] LABS: GLUCOMETER DEV NAME(LOC) 6N.2; GLUCOSE,POINT OF CARE 153 MG/DL (70-110)
[2022-03-13 02:26] VITALS: BP 129/77
[2022-03-13 07:14] LABS: ALBUMIN 2.7 g/dL (3.4-5.0); BILIRUBIN,TOTAL 21.8 mg/dL (0.1-1.0); CREATININE 1.43 mg/dL (0.60-1.30); POTASSIUM 4.5 mmol/L (3.5-5.1); TOTAL PROTEIN, SERUM 8.5 g/dL (6.4-8.2)
[2022-03-13 07:36] LABS: PROTHROMBIN TIME 20.5 SEC (9.4-11.6)
[2022-03-13 08:04] VITALS: BP 135/75
[2022-03-13] MEDS: OLANZapine 5 MG TABLET PO SCH ×2 (08:52→20:45)
[2022-03-13] MEDS: RIFAXIMIN 550 MG TABLET PO SCH ×2 (08:52→20:45)
[2022-03-13] MEDS: TENOFOVIR DISOPROXIL FUMARATE 300 MG TABLET PO SCH (08:52)
[2022-03-13] MEDS: BuPROPion HCL XL 150 MG ER TABLET PO SCH (08:52)
[2022-03-13] MEDS: LACTULOSE 20 GM/30 ML SOLUTION UDCUP PO SCH ×2 (08:52→20:45)
[2022-03-13] MEDS: DOCUSATE SODIUM 100 MG CAPSULE PO SCH ×2 (08:52→20:45)
[2022-03-13] MEDS: PANTOPRAZOLE SODIUM 40 MG/VIAL IVP SCH ×2 (08:52→20:45)
[2022-03-13] MEDS: VANCOMYCIN HCL 750 MG in DEXTROSE 5%-WATER 250 ML IV SCH (08:54)
[2022-03-13 10:25] LABS: BASOPHILS % (AUTO) 0.4 % (0.0-2.0); EOSINOPHILS % (AUTO) 3.4 % (1.0-6.0); HEMOGLOBIN 7.8 g/dL (12.0-16.0); LYMPHOCYTES # (AUTO) 1.1 K/uL (1.0-4.8); MEAN CORPUSCULAR HEMOGLOBIN 29.7 pg (26.0-34.0); MEAN CORPUSCULAR HGB CONC 33.8 G/dL (31.0-37.0); MEAN CORPUSCULAR VOLUME 88 fL (80-100); MONOCYTES # (AUTO) 0.6 K/uL (0.1-1.0); MONOCYTES % (AUTO) 10.1 % (2.0-9.0); NEUTROPHILS % (AUTO) 67.1 % (40.0-70.0); RED BLOOD CELL COUNT(AUTO) 2.61 MIL/uL (4.00-5.20); RED CELL DISTRIBUTION WIDTH 18.8 % (11.5-14.5)
[2022-03-13 10:54] LABS: PLATELET COUNT (AUTO) 66 K/uL (150-450)
[2022-03-13 12:07] LABS: GLUCOMETER DEV NAME(LOC) 6N.2; GLUCOSE,POINT OF CARE 210 MG/DL (70-110)
[2022-03-13] MEDS: ALBUMIN HUMAN 25%-50GM/200ML 200 ML IV SCH (12:52)
[2022-03-13] MEDS: INSULIN LISPRO 100 UNITS/ML SQ PRN (12:54)
[2022-03-13 16:10] VITALS: BP 129/71
[2022-03-13 17:56] LABS: GLUCOMETER DEV NAME(LOC) 6N.1; GLUCOSE,POINT OF CARE 100 MG/DL (70-110)
[2022-03-13 20:36] LABS: GLUCOMETER DEV NAME(LOC) 6N.2; GLUCOSE,POINT OF CARE 117 MG/DL (70-110)
[2022-03-13] MEDS: TraZODone HCL 50 MG TABLET PO SCH (20:45)
[2022-03-13] MEDS: INSULIN GLARGINE,HUM.REC.ANLOG 100 UNITS/ML SQ SCH (20:48)
[2022-03-13 20:55] VITALS: BP 118/61
[2022-03-14 05:15] VITALS: BP 97/56
[2022-03-14 05:36] LABS: GLUCOMETER DEV NAME(LOC) 6N.1; GLUCOSE,POINT OF CARE 48 MG/DL (70-110)
[2022-03-14 07:01] LABS: GLUCOMETER DEV NAME(LOC) 6N.2; GLUCOSE,POINT OF CARE 131 MG/DL (70-110)
[2022-03-14] MEDS: LACTULOSE 20 GM/30 ML SOLUTION UDCUP PO SCH ×2 (08:15→21:00)
[2022-03-14] MEDS: BuPROPion HCL XL 150 MG ER TABLET PO SCH (08:15)
[2022-03-14] MEDS: PANTOPRAZOLE SODIUM 40 MG/VIAL IVP SCH ×2 (08:15→21:57)
[2022-03-14] MEDS: OLANZapine 5 MG TABLET PO SCH ×2 (08:15→21:59)
[2022-03-14] MEDS: RIFAXIMIN 550 MG TABLET PO SCH ×2 (08:15→21:57)
[2022-03-14] MEDS: TENOFOVIR DISOPROXIL FUMARATE 300 MG TABLET PO SCH (08:15)
[2022-03-14] MEDS: VANCOMYCIN HCL 750 MG in DEXTROSE 5%-WATER 250 ML IV SCH (08:15)
[2022-03-14] MEDS: DOCUSATE SODIUM 100 MG CAPSULE PO SCH ×2 (08:15→21:00)
[2022-03-14 08:24] VITALS: BP 120/76
[2022-03-14 08:28] LABS: PROTHROMBIN TIME 20.8 SEC (9.4-11.6)
[2022-03-14 08:37] LABS: BASOPHILS % (AUTO) 0.3 % (0.0-2.0); EOSINOPHILS % (AUTO) 2.1 % (1.0-6.0); HEMATOCRIT 22.5 % (36-46); HEMOGLOBIN 7.6 g/dL (12.0-16.0); LYMPHOCYTES # (AUTO) 0.9 K/uL (1.0-4.8); LYMPHOCYTES % (AUTO) 15.3 % (22.0-44.0); MEAN CORPUSCULAR HEMOGLOBIN 29.8 pg (26.0-34.0); MEAN CORPUSCULAR HGB CONC 33.6 G/dL (31.0-37.0); MEAN CORPUSCULAR VOLUME 89 fL (80-100); MONOCYTES # (AUTO) 0.7 K/uL (0.1-1.0); NEUTROPHILS # (AUTO) 4.4 K/uL (1.8-7.7); NEUTROPHILS % (AUTO) 71.3 % (40.0-70.0); RED BLOOD CELL COUNT(AUTO) 2.54 MIL/uL (4.00-5.20); RED CELL DISTRIBUTION WIDTH 18.8 % (11.5-14.5)
[2022-03-14 08:41] LABS: ALBUMIN 3.1 g/dL (3.4-5.0); BILIRUBIN,TOTAL 24.8 mg/dL (0.1-1.0); CALCIUM, TOTAL 9.5 mg/dL (8.8-10.5); CREATININE 1.99 mg/dL (0.60-1.30); POTASSIUM 4.8 mmol/L (3.5-5.1); TOTAL PROTEIN, SERUM 8.9 g/dL (6.4-8.2)
[2022-03-14 09:22] LABS: PLATELET COUNT (AUTO) 63 K/uL (150-450)
[2022-03-14] MEDS: ALBUMIN HUMAN 25%-50GM/200ML 200 ML IV SCH (11:55)
[2022-03-14 13:31] LABS: GLUCOMETER DEV NAME(LOC) 6N.2; GLUCOSE,POINT OF CARE 101 MG/DL (70-110)
[2022-03-14 16:06] VITALS: BP 126/67
[2022-03-14] MEDS: SODIUM CHLORIDE 0.9% 1,000 ML IV SCH (16:21)
[2022-03-14] MEDS: ALBUMIN HUMAN 25%-25GM/100ML 100 ML IV SCH ×2 (17:49→22:09)
[2022-03-14 20:11] VITALS: BP 124/76
[2022-03-14] MEDS: TraZODone HCL 50 MG TABLET PO SCH (21:57)
[2022-03-14] MEDS: INSULIN GLARGINE,HUM.REC.ANLOG 100 UNITS/ML SQ SCH (22:07)
[2022-03-14 23:16] LABS: GLUCOMETER DEV NAME(LOC) 6N.1; GLUCOSE,POINT OF CARE 133 MG/DL (70-110)
[2022-03-15] VITALS (13 sets, daily range): BP systolic 108–158; BP diastolic 52–88
[2022-03-15] MEDS: ALBUMIN HUMAN 25%-25GM/100ML 100 ML IV SCH ×4 (05:42→22:21)
[2022-03-15] MEDS: SODIUM CHLORIDE 0.9% 1,000 ML IV SCH ×2 (06:14→21:55)
[2022-03-15 07:16] LABS: GLUCOMETER DEV NAME(LOC) 6N.2; GLUCOSE,POINT OF CARE 109 MG/DL (70-110)
[2022-03-15 07:38] LABS: BASOPHILS % (AUTO) 0.4 % (0.0-2.0); EOSINOPHILS % (AUTO) 2.5 % (1.0-6.0); LYMPHOCYTES # (AUTO) 0.8 K/uL (1.0-4.8); LYMPHOCYTES % (AUTO) 15.5 % (22.0-44.0); MEAN CORPUSCULAR HEMOGLOBIN 29.6 pg (26.0-34.0); MEAN CORPUSCULAR HGB CONC 33.6 G/dL (31.0-37.0); MEAN CORPUSCULAR VOLUME 88 fL (80-100); MONOCYTES # (AUTO) 0.6 K/uL (0.1-1.0); MONOCYTES % (AUTO) 11.5 % (2.0-9.0); NEUTROPHILS # (AUTO) 3.8 K/uL (1.8-7.7); NEUTROPHILS % (AUTO) 70.1 % (40.0-70.0); PLATELET COUNT (AUTO) 51 K/uL (150-450); RED BLOOD CELL COUNT(AUTO) 2.22 MIL/uL (4.00-5.20); RED CELL DISTRIBUTION WIDTH 18.5 % (11.5-14.5)
[2022-03-15 07:43] LABS: ALBUMIN 3.8 g/dL (3.4-5.0); BILIRUBIN,TOTAL 24.1 mg/dL (0.1-1.0); CALCIUM, TOTAL 9.4 mg/dL (8.8-10.5); CREATININE 2.27 mg/dL (0.60-1.30); MAGNESIUM 1.9 mg/dL (1.80-2.40); POTASSIUM 4.7 mmol/L (3.5-5.1); TOTAL PROTEIN, SERUM 8.6 g/dL (6.4-8.2); VANCOMYCIN,RANDOM 25.3 mcg/mL (25.0-50.0)
[2022-03-15 07:50] LABS: HEMATOCRIT 19.6 % (36-46); HEMOGLOBIN 6.6 g/dL (12.0-16.0)
[2022-03-15] MEDS: DOCUSATE SODIUM 100 MG CAPSULE PO SCH ×2 (08:10→21:00)
[2022-03-15] MEDS: VANCOMYCIN HCL 750 MG in DEXTROSE 5%-WATER 250 ML IV SCH (08:13)
[2022-03-15] MEDS: RIFAXIMIN 550 MG TABLET PO SCH ×2 (08:14→21:50)
[2022-03-15] MEDS: LACTULOSE 20 GM/30 ML SOLUTION UDCUP PO SCH ×2 (08:15→21:00)
[2022-03-15] MEDS: BuPROPion HCL XL 150 MG ER TABLET PO SCH (08:15)
[2022-03-15] MEDS: PANTOPRAZOLE SODIUM 40 MG/VIAL IVP SCH ×2 (08:15→21:50)
[2022-03-15] MEDS: TENOFOVIR DISOPROXIL FUMARATE 300 MG TABLET PO SCH (08:15)
[2022-03-15] MEDS: OLANZapine 5 MG TABLET PO SCH ×2 (08:15→21:50)
[2022-03-15] MEDS ORDERED: VANCOMYCIN HCL 1 GM in DEXTROSE 5%-WATER 250 ML IV PRN (09:00)
[2022-03-15 15:04] LABS: APPEARANCE,URINE HAZY (CLEAR); GLUCOSE, URINE (UA) NEGATIVE (NEGATIVE); KETONES,URINE NEGATIVE (NEGATIVE); LEUKOCYTE ESTERASE ,URINE MODERATE (NEGATIVE); NITRATE,URINE NEGATIVE (NEGATIVE); OCCULT BLOOD,URINE SMALL (NEGATIVE); PH,URINE 5.5 (5.0-8.0); PROTEIN,URINE TRACE mg/dL (NEGATIVE); UROBILINOGEN,URINE <=1.0 mg/dL (<=1.0)
[2022-03-15 15:09] LABS: SODIUM,URINE RANDOM 60 mmol/l (20-110); UREA NITROGEN,URINE RANDOM 394 mg/dL (350-1000)
[2022-03-15 15:17] LABS: BILIRUBIN,URINE SMALL (NEGATIVE)
[2022-03-15 15:40] LABS: BACTERIA,URINE Many /HPF (None Seen); RBC,URINE 0-2 /HPF (0-2)
[2022-03-15 15:41] LABS: SQUAMOUS EPITHELIAL CELL,UR Few /LPF (None Seen); YEAST,URINE Many /HPF (None Seen)
[2022-03-15 16:52] LABS: HEMATOCRIT 25.7 % (36-46); HEMOGLOBIN 8.6 g/dL (12.0-16.0)
[2022-03-15 17:52] LABS: GLUCOMETER DEV NAME(LOC) 6N.1; GLUCOSE,POINT OF CARE 99 MG/DL (70-110)
[2022-03-15] MEDS: TraZODone HCL 50 MG TABLET PO SCH (21:50)
[2022-03-15] MEDS: INSULIN GLARGINE,HUM.REC.ANLOG 100 UNITS/ML SQ SCH (22:03)
[2022-03-15 23:41] LABS: GLUCOMETER DEV NAME(LOC) 6N.2; GLUCOSE,POINT OF CARE 94 MG/DL (70-110)
[2022-03-16] MEDS: ALBUMIN HUMAN 25%-25GM/100ML 100 ML IV SCH ×3 (04:45→16:17)
[2022-03-16 06:05] VITALS: BP 115/61
[2022-03-16 06:51] LABS: GLUCOMETER DEV NAME(LOC) 6N.1; GLUCOSE,POINT OF CARE 86 MG/DL (70-110)
[2022-03-16 07:25] LABS: BASOPHILS % (AUTO) 0.4 % (0.0-2.0); HEMATOCRIT 21.1 % (36-46); HEMOGLOBIN 7.3 g/dL (12.0-16.0); LYMPHOCYTES # (AUTO) 0.9 K/uL (1.0-4.8); MEAN CORPUSCULAR HEMOGLOBIN 29.8 pg (26.0-34.0); MEAN CORPUSCULAR HGB CONC 34.8 G/dL (31.0-37.0); MEAN CORPUSCULAR VOLUME 86 fL (80-100); MONOCYTES # (AUTO) 0.7 K/uL (0.1-1.0); MONOCYTES % (AUTO) 11.6 % (2.0-9.0); NEUTROPHILS # (AUTO) 4.1 K/uL (1.8-7.7); PLATELET COUNT (AUTO) 52 K/uL (150-450); RED BLOOD CELL COUNT(AUTO) 2.46 MIL/uL (4.00-5.20); RED CELL DISTRIBUTION WIDTH 19.5 % (11.5-14.5)
[2022-03-16 07:35] LABS: CALCIUM, TOTAL 10.1 mg/dL (8.8-10.5); CREATININE 2.19 mg/dL (0.60-1.30); POTASSIUM 4.7 mmol/L (3.5-5.1)
[2022-03-16 07:40] LABS: PHOSPHORUS 3.2 mg/dL (2.5-4.9)
[2022-03-16 07:56] VITALS: BP 133/69
[2022-03-16] MEDS: DOCUSATE SODIUM 100 MG CAPSULE PO SCH (08:51)
[2022-03-16] MEDS: RIFAXIMIN 550 MG TABLET PO SCH ×2 (08:51→21:50)
[2022-03-16] MEDS: BuPROPion HCL XL 150 MG ER TABLET PO SCH (08:51)
[2022-03-16] MEDS: OLANZapine 5 MG TABLET PO SCH ×2 (08:51→21:50)
[2022-03-16] MEDS: LACTULOSE 20 GM/30 ML SOLUTION UDCUP PO SCH (08:51)
[2022-03-16] MEDS: PANTOPRAZOLE SODIUM 40 MG/VIAL IVP SCH ×2 (08:51→21:51)
[2022-03-16] MEDS: TENOFOVIR DISOPROXIL FUMARATE 300 MG TABLET PO SCH (08:51)
[2022-03-16 11:50] LABS: INR 2.3 (0.9-1.1); PROTHROMBIN TIME 23.5 SEC (9.4-11.6)
[2022-03-16] MEDS: OCTREOTIDE ACETATE 100 MCG/ML VIAL SQ SCH ×3 (12:15→22:21)
[2022-03-16 12:24] LABS: ALBUMIN 4.1 g/dL (3.4-5.0); BILIRUBIN,DIRECT 19.5 mg/dL (0.00-0.20); TOTAL PROTEIN, SERUM 8.3 g/dL (6.4-8.2)
[2022-03-16 12:30] LABS: BILIRUBIN,TOTAL 29.5 mg/dL (0.1-1.0)
[2022-03-16] MEDS: SODIUM CHLORIDE 0.9% 1,000 ML IV SCH ×2 (12:30→16:18)
[2022-03-16] MEDS ORDERED: SODIUM CHLORIDE 0.9% 1,000 ML ONE ×2 (12:34→14:15)
[2022-03-16] MEDS ORDERED: PrednisoLONE SOD PHOSPHATE 15 MG/5 ML SOLUTION UDCUP PO SCH (14:30)
[2022-03-16 15:26] VITALS: BP 122/65
[2022-03-16] MEDS: INSULIN LISPRO 100 UNITS/ML SQ PRN ×2 (17:46→22:01)
[2022-03-16 20:07] VITALS: BP 136/70
[2022-03-16 21:26] LABS: GLUCOMETER DEV NAME(LOC) 6N.2; GLUCOSE,POINT OF CARE 81 MG/DL (70-110)
[2022-03-16 21:26] LABS: GLUCOMETER DEV NAME(LOC) 6N.2; GLUCOSE,POINT OF CARE 171 MG/DL (70-110)
[2022-03-16] MEDS: TraZODone HCL 50 MG TABLET PO SCH (21:50)
[2022-03-16] MEDS: INSULIN GLARGINE,HUM.REC.ANLOG 100 UNITS/ML SQ SCH (22:00)
[2022-03-16] MEDS: SODIUM BICARBONATE 75 MEQ in SODIUM CHLORIDE 0.45% 1,000 ML IV SCH (22:22)
[2022-03-16] MEDS: ZOLPIDEM TARTRATE 5 MG TABLET PO PRN (22:22)
[2022-03-16 22:41] LABS: GLUCOMETER DEV NAME(LOC) 6N.2; GLUCOSE,POINT OF CARE 362 MG/DL (70-110)
[2022-03-17 04:00] VITALS: BP 135/71
[2022-03-17] MEDS: INSULIN LISPRO 100 UNITS/ML SQ PRN ×4 (06:06→20:08)
[2022-03-17 07:46] LABS: GLUCOMETER DEV NAME(LOC) 6N.2; GLUCOSE,POINT OF CARE 343 MG/DL (70-110)
[2022-03-17] MEDS: OLANZapine 5 MG TABLET PO SCH ×2 (09:00→20:11)
[2022-03-17] MEDS: BuPROPion HCL XL 150 MG ER TABLET PO SCH (09:00)
[2022-03-17] MEDS: RIFAXIMIN 550 MG TABLET PO SCH ×2 (09:00→20:08)
[2022-03-17] MEDS: LACTULOSE 20 GM/30 ML SOLUTION UDCUP PO SCH (09:00)
[2022-03-17] MEDS: TENOFOVIR ALAFENAMIDE 25 MG PO SCH (09:00)
[2022-03-17 09:19] LABS: BASOPHILS % (AUTO) 0.2 % (0.0-2.0); EOSINOPHILS % (AUTO) 0.1 % (1.0-6.0); HEMATOCRIT 22.4 % (36-46); HEMOGLOBIN 7.7 g/dL (12.0-16.0); LYMPHOCYTES # (AUTO) 0.5 K/uL (1.0-4.8); LYMPHOCYTES % (AUTO) 9.2 % (22.0-44.0); MEAN CORPUSCULAR HEMOGLOBIN 29.5 pg (26.0-34.0); MEAN CORPUSCULAR HGB CONC 34.4 G/dL (31.0-37.0); MEAN CORPUSCULAR VOLUME 86 fL (80-100); MONOCYTES # (AUTO) 0.4 K/uL (0.1-1.0); MONOCYTES % (AUTO) 8.1 % (2.0-9.0); NEUTROPHILS # (AUTO) 4.2 K/uL (1.8-7.7); NEUTROPHILS % (AUTO) 82.4 % (40.0-70.0); PLATELET COUNT (AUTO) 56 K/uL (150-450); RED CELL DISTRIBUTION WIDTH 19.6 % (11.5-14.5)
[2022-03-17] MEDS: PANTOPRAZOLE SODIUM 40 MG/VIAL IVP SCH ×2 (09:30→20:11)
[2022-03-17] MEDS: SODIUM BICARBONATE 75 MEQ in SODIUM CHLORIDE 0.45% 1,000 ML IV SCH (09:31)
[2022-03-17] MEDS: OCTREOTIDE ACETATE 100 MCG/ML VIAL SQ SCH ×3 (09:32→20:08)
[2022-03-17 09:37] LABS: INR 2.4 (0.9-1.1); PROTHROMBIN TIME 24.4 SEC (9.4-11.6)
[2022-03-17 09:51] LABS: ALBUMIN 3.9 g/dL (3.4-5.0); BILIRUBIN,DIRECT 20.2 mg/dL (0.00-0.20); BILIRUBIN,TOTAL 28.7 mg/dL (0.1-1.0); CALCIUM, TOTAL 9.5 mg/dL (8.8-10.5); CREATININE 2.29 mg/dL (0.60-1.30); PHOSPHORUS 3.1 mg/dL (2.5-4.9); POTASSIUM 5.9 mmol/L (3.5-5.1); TOTAL PROTEIN, SERUM 8.4 g/dL (6.4-8.2)
[2022-03-17 10:27] VITALS: BP 98/57
[2022-03-17 11:36] LABS: GLUCOMETER DEV NAME(LOC) 6N.1; GLUCOSE,POINT OF CARE 227 MG/DL (70-110)
[2022-03-17] MEDS: SODIUM CHLORIDE 0.9% 1,000 ML IV SCH (12:30)
[2022-03-17] MEDS ORDERED: SODIUM POLYSTYRENE SULFONATE 15 GM/60 ML SUSPENSION BOTTLE PO ONE (12:30)
[2022-03-17 15:13] VITALS: BP 124/62
[2022-03-17 18:56] LABS: GLUCOMETER DEV NAME(LOC) 6N.2; GLUCOSE,POINT OF CARE 149 MG/DL (70-110)
[2022-03-17] MEDS: INSULIN GLARGINE,HUM.REC.ANLOG 100 UNITS/ML SQ SCH (20:07)
[2022-03-17] MEDS: ZOLPIDEM TARTRATE 5 MG TABLET PO PRN (20:11)
[2022-03-17] MEDS: TraZODone HCL 50 MG TABLET PO SCH (20:11)
[2022-03-17 20:56] VITALS: BP 135/74
[2022-03-18] MEDS: SODIUM BICARBONATE 75 MEQ in SODIUM CHLORIDE 0.45% 1,000 ML IV SCH ×3 (00:20→22:30)
[2022-03-18 03:31] LABS: GLUCOMETER DEV NAME(LOC) 6N.2; GLUCOSE,POINT OF CARE 198 MG/DL (70-110)
[2022-03-18 06:20] VITALS: BP 139/78
[2022-03-18] MEDS ORDERED: PROPOFOL 1% 20 ML VIAL IVP ONE (06:33)
[2022-03-18] MEDS: INSULIN LISPRO 100 UNITS/ML SQ PRN ×2 (06:45→20:34)
[2022-03-18 06:56] LABS: GLUCOMETER DEV NAME(LOC) 6N.1; GLUCOSE,POINT OF CARE 163 MG/DL (70-110)
[2022-03-18 06:58] LABS: ALBUMIN 3.5 g/dL (3.4-5.0); BILIRUBIN,DIRECT 19.4 mg/dL (0.00-0.20); BILIRUBIN,TOTAL 27.7 mg/dL (0.1-1.0); CALCIUM, TOTAL 9.1 mg/dL (8.8-10.5); CREATININE 2.25 mg/dL (0.60-1.30); MAGNESIUM 1.6 mg/dL (1.80-2.40); PHOSPHORUS 3.3 mg/dL (2.5-4.9); POTASSIUM 4.4 mmol/L (3.5-5.1); TOTAL PROTEIN, SERUM 7.7 g/dL (6.4-8.2)
[2022-03-18 08:08] VITALS: BP 141/77
[2022-03-18] MEDS: PANTOPRAZOLE SODIUM 40 MG/VIAL IVP SCH ×3 (09:00→20:22)
[2022-03-18] MEDS: OCTREOTIDE ACETATE 100 MCG/ML VIAL SQ SCH ×4 (09:00→20:24)
[2022-03-18 09:28] LABS: INR 2.5 (0.9-1.1); PROTHROMBIN TIME 25.1 SEC (9.4-11.6)
[2022-03-18] MEDS: BuPROPion HCL XL 150 MG ER TABLET PO SCH (09:28)
[2022-03-18] MEDS: RIFAXIMIN 550 MG TABLET PO SCH ×2 (09:28→20:23)
[2022-03-18] MEDS: TENOFOVIR ALAFENAMIDE 25 MG PO SCH (09:28)
[2022-03-18] MEDS: LACTULOSE 20 GM/30 ML SOLUTION UDCUP PO SCH (09:29)
[2022-03-18] MEDS: OLANZapine 5 MG TABLET PO SCH ×2 (09:29→20:23)
[2022-03-18 11:41] LABS: GLUCOMETER DEV NAME(LOC) 6N.1; GLUCOSE,POINT OF CARE 150 MG/DL (70-110)
[2022-03-18] MEDS: SODIUM CHLORIDE 0.9% 1,000 ML IV SCH (14:43)
[2022-03-18 16:03] VITALS: BP 132/82
[2022-03-18 20:06] LABS: GLUCOMETER DEV NAME(LOC) 6N.1; GLUCOSE,POINT OF CARE 173 MG/DL (70-110)
[2022-03-18] MEDS: TraZODone HCL 50 MG TABLET PO SCH (20:23)
[2022-03-18] MEDS: INSULIN GLARGINE,HUM.REC.ANLOG 100 UNITS/ML SQ SCH (20:33)
[2022-03-18 20:45] VITALS: BP 123/81
[2022-03-18 22:36] LABS: GLUCOMETER DEV NAME(LOC) 6N.2; GLUCOSE,POINT OF CARE 276 MG/DL (70-110)
[2022-03-19] VITALS (11 sets, daily range): BP systolic 112–143; BP diastolic 48–97
[2022-03-19 07:45] LABS: GLUCOMETER DEV NAME(LOC) 6N.2; GLUCOSE,POINT OF CARE 110 MG/DL (70-110)
[2022-03-19] MEDS: OCTREOTIDE ACETATE 100 MCG/ML VIAL SQ SCH ×4 (08:20→20:46)
[2022-03-19] MEDS: TENOFOVIR ALAFENAMIDE 25 MG PO SCH ×2 (08:21→08:34)
[2022-03-19] MEDS: LACTULOSE 20 GM/30 ML SOLUTION UDCUP PO SCH ×2 (08:21→08:34)
[2022-03-19] MEDS: BuPROPion HCL XL 150 MG ER TABLET PO SCH ×2 (08:22→08:35)
[2022-03-19] MEDS: PANTOPRAZOLE SODIUM 40 MG/VIAL IVP SCH ×3 (08:22→20:46)
[2022-03-19] MEDS: RIFAXIMIN 550 MG TABLET PO SCH ×3 (08:22→20:46)
[2022-03-19] MEDS: OLANZapine 5 MG TABLET PO SCH ×3 (08:23→20:46)
[2022-03-19] MEDS: SODIUM CHLORIDE 0.9% 1,000 ML IV SCH (12:22)
[2022-03-19 13:02] LABS: LYMPHOCYTES # (AUTO) 0.8 K/uL (1.0-4.8); MEAN CORPUSCULAR HGB CONC 34.2 G/dL (31.0-37.0); MONOCYTES # (AUTO) 0.5 K/uL (0.1-1.0); NEUTROPHILS # (AUTO) 3.2 K/uL (1.8-7.7)
[2022-03-19 13:11] LABS: BASOPHILS % (AUTO) 0.5 % (0.0-2.0); EOSINOPHILS % (AUTO) 3.7 % (1.0-6.0); LYMPHOCYTES % (AUTO) 17.2 % (22.0-44.0); MEAN CORPUSCULAR HEMOGLOBIN 29.4 pg (26.0-34.0); MEAN CORPUSCULAR VOLUME 86 fL (80-100); MONOCYTES % (AUTO) 11.2 % (2.0-9.0); NEUTROPHILS % (AUTO) 67.4 % (40.0-70.0); PLATELET COUNT (AUTO) 48 K/uL (150-450); RED BLOOD CELL COUNT(AUTO) 2.31 MIL/uL (4.00-5.20); RED CELL DISTRIBUTION WIDTH 19.7 % (11.5-14.5)
[2022-03-19 13:12] LABS: INR 2.6 (0.9-1.1); PROTHROMBIN TIME 26.1 SEC (9.4-11.6)
[2022-03-19 13:21] LABS: HEMOGLOBIN 6.8 g/dL (12.0-16.0)
[2022-03-19 13:22] LABS: HEMATOCRIT 19.8 % (36-46)
[2022-03-19 13:32] LABS: ALBUMIN 3.1 g/dL (3.4-5.0); BILIRUBIN,DIRECT 20.1 mg/dL (0.00-0.20); CALCIUM, TOTAL 8.9 mg/dL (8.8-10.5); CREATININE 2.02 mg/dL (0.60-1.30); MAGNESIUM 1.5 mg/dL (1.80-2.40); PHOSPHORUS 2.9 mg/dL (2.5-4.9); POTASSIUM 4.2 mmol/L (3.5-5.1); TOTAL PROTEIN, SERUM 7.5 g/dL (6.4-8.2)
[2022-03-19] MEDS ORDERED: SODIUM CHLORIDE 0.9% 500 ML IV ONE (17:21)
[2022-03-19 18:36] LABS: GLUCOMETER DEV NAME(LOC) 6N.2; GLUCOSE,POINT OF CARE 211 MG/DL (70-110)
[2022-03-19] MEDS: TraZODone HCL 50 MG TABLET PO SCH (20:46)
[2022-03-19] MEDS: INSULIN GLARGINE,HUM.REC.ANLOG 100 UNITS/ML SQ SCH (20:46)
[2022-03-19] MEDS: INSULIN LISPRO 100 UNITS/ML SQ PRN (20:47)
[2022-03-19 23:26] LABS: GLUCOMETER DEV NAME(LOC) 6N.1; GLUCOSE,POINT OF CARE 213 MG/DL (70-110)
[2022-03-20 04:05] VITALS: BP 143/82
[2022-03-20] MEDS: INSULIN LISPRO 100 UNITS/ML SQ PRN ×3 (05:39→20:56)
[2022-03-20 06:16] LABS: GLUCOMETER DEV NAME(LOC) 6N.2; GLUCOSE,POINT OF CARE 267 MG/DL (70-110)
[2022-03-20 06:26] LABS: BASOPHILS % (AUTO) 0.3 % (0.0-2.0); EOSINOPHILS % (AUTO) 2.5 % (1.0-6.0); HEMATOCRIT 22.2 % (36-46); HEMOGLOBIN 7.8 g/dL (12.0-16.0); LYMPHOCYTES # (AUTO) 0.7 K/uL (1.0-4.8); MEAN CORPUSCULAR HEMOGLOBIN 30.3 pg (26.0-34.0); MEAN CORPUSCULAR HGB CONC 35.3 G/dL (31.0-37.0); MEAN CORPUSCULAR VOLUME 86 fL (80-100); MONOCYTES # (AUTO) 0.6 K/uL (0.1-1.0); MONOCYTES % (AUTO) 11.2 % (2.0-9.0); NEUTROPHILS # (AUTO) 4.2 K/uL (1.8-7.7); PLATELET COUNT (AUTO) 39 K/uL (150-450); RED BLOOD CELL COUNT(AUTO) 2.58 MIL/uL (4.00-5.20); RED CELL DISTRIBUTION WIDTH 18.5 % (11.5-14.5)
[2022-03-20 06:39] LABS: INR 2.4 (0.9-1.1); PROTHROMBIN TIME 24.5 SEC (9.4-11.6)
[2022-03-20 06:57] LABS: ALBUMIN 3.1 g/dL (3.4-5.0); CALCIUM, TOTAL 8.8 mg/dL (8.8-10.5); CREATININE 2.05 mg/dL (0.60-1.30); MAGNESIUM 1.5 mg/dL (1.80-2.40); POTASSIUM 4.3 mmol/L (3.5-5.1); TOTAL PROTEIN, SERUM 7.7 g/dL (6.4-8.2)
[2022-03-20 07:00] LABS: BILIRUBIN,TOTAL 31.6 mg/dL (0.1-1.0)
[2022-03-20 08:09] VITALS: BP 112/68
[2022-03-20] MEDS: TENOFOVIR ALAFENAMIDE 25 MG PO SCH (08:33)
[2022-03-20] MEDS: BuPROPion HCL XL 150 MG ER TABLET PO SCH (08:34)
[2022-03-20] MEDS: PANTOPRAZOLE SODIUM 40 MG/VIAL IVP SCH ×2 (08:34→20:48)
[2022-03-20] MEDS: RIFAXIMIN 550 MG TABLET PO SCH ×2 (08:34→20:46)
[2022-03-20] MEDS: LACTULOSE 20 GM/30 ML SOLUTION UDCUP PO SCH (08:34)
[2022-03-20] MEDS: OLANZapine 5 MG TABLET PO SCH ×2 (08:34→20:47)
[2022-03-20] MEDS: OCTREOTIDE ACETATE 100 MCG/ML VIAL SQ SCH (08:36)
[2022-03-20 15:47] VITALS: BP 167/94
[2022-03-20 19:37] VITALS: BP 154/91
[2022-03-20] MEDS: TraZODone HCL 50 MG TABLET PO SCH (20:46)
[2022-03-20] MEDS: INSULIN GLARGINE,HUM.REC.ANLOG 100 UNITS/ML SQ SCH (20:57)
[2022-03-20 22:31] LABS: GLUCOMETER DEV NAME(LOC) 6N.2; GLUCOSE,POINT OF CARE 283 MG/DL (70-110)
[2022-03-21] MEDS: DEXTROSE 50%-WATER 25 GM/50 ML SYRINGE IVP PRN (05:52)
[2022-03-21 06:59] VITALS: BP 116/77
[2022-03-21 08:10] VITALS: BP 121/69
[2022-03-21] MEDS: RIFAXIMIN 550 MG TABLET PO SCH ×2 (08:33→20:51)
[2022-03-21] MEDS: BuPROPion HCL XL 150 MG ER TABLET PO SCH (08:33)
[2022-03-21] MEDS: LACTULOSE 20 GM/30 ML SOLUTION UDCUP PO SCH (08:33)
[2022-03-21] MEDS: TENOFOVIR ALAFENAMIDE 25 MG PO SCH (08:33)
[2022-03-21] MEDS: PANTOPRAZOLE SODIUM 40 MG/VIAL IVP SCH ×2 (08:33→20:41)
[2022-03-21] MEDS: OLANZapine 5 MG TABLET PO SCH ×2 (08:33→20:40)
[2022-03-21 08:36] LABS: GLUCOMETER DEV NAME(LOC) 6N.1; GLUCOSE,POINT OF CARE 124 MG/DL (70-110)
[2022-03-21 08:36] LABS: GLUCOMETER DEV NAME(LOC) 6N.1; GLUCOSE,POINT OF CARE 42 MG/DL (70-110)
[2022-03-21] MEDS: SODIUM CHLORIDE 0.9% 1,000 ML IV SCH (11:49)
[2022-03-21] MEDS: INSULIN LISPRO 100 UNITS/ML SQ PRN ×2 (17:40→20:48)
[2022-03-21 19:20] LABS: GLUCOMETER DEV NAME(LOC) 6N.2; GLUCOSE,POINT OF CARE 220 MG/DL (70-110)
[2022-03-21] MEDS: TraZODone HCL 50 MG TABLET PO SCH (20:40)
[2022-03-21] MEDS: INSULIN GLARGINE,HUM.REC.ANLOG 100 UNITS/ML SQ SCH (20:46)
[2022-03-21 20:50] VITALS: BP 132/74
[2022-03-21] MEDS ORDERED: SODIUM CHLORIDE 0.9% 500 ML IV ONE (21:00)
[2022-03-21 23:01] LABS: GLUCOMETER DEV NAME(LOC) 6N.2; GLUCOSE,POINT OF CARE 213 MG/DL (70-110)
[2022-03-22 04:54] VITALS: BP 144/82
[2022-03-22 06:36] LABS: GLUCOMETER DEV NAME(LOC) 6N.2; GLUCOSE,POINT OF CARE 121 MG/DL (70-110)
[2022-03-22 07:23] LABS: BASOPHILS % (AUTO) 0.4 % (0.0-2.0); EOSINOPHILS % (AUTO) 2.5 % (1.0-6.0); HEMATOCRIT 22.2 % (36-46); HEMOGLOBIN 7.8 g/dL (12.0-16.0); LYMPHOCYTES # (AUTO) 0.7 K/uL (1.0-4.8); LYMPHOCYTES % (AUTO) 10.4 % (22.0-44.0); MEAN CORPUSCULAR HEMOGLOBIN 30.3 pg (26.0-34.0); MEAN CORPUSCULAR HGB CONC 35.3 G/dL (31.0-37.0); MEAN CORPUSCULAR VOLUME 86 fL (80-100); MONOCYTES # (AUTO) 0.7 K/uL (0.1-1.0); MONOCYTES % (AUTO) 9.5 % (2.0-9.0); NEUTROPHILS # (AUTO) 5.4 K/uL (1.8-7.7); NEUTROPHILS % (AUTO) 77.2 % (40.0-70.0); PLATELET COUNT (AUTO) 36 K/uL (150-450); RED BLOOD CELL COUNT(AUTO) 2.59 MIL/uL (4.00-5.20); RED CELL DISTRIBUTION WIDTH 18.9 % (11.5-14.5)
[2022-03-22 07:26] VITALS: BP 109/62
[2022-03-22 07:49] LABS: CALCIUM, TOTAL 9.2 mg/dL (8.8-10.5); PHOSPHORUS 2.6 mg/dL (2.5-4.9); THYROID STIMULATING HORMONE 0.95 uIU/mL (0.36-3.74); TOTAL PROTEIN, SERUM 7.8 g/dL (6.4-8.2)
[2022-03-22 08:08] LABS: CREATININE 2.02 mg/dL (0.60-1.30); FREE T4 (FREE THYROXINE) 1.47 ng/dL (0.76-1.46)
[2022-03-22] MEDS: OLANZapine 5 MG TABLET PO SCH ×2 (09:07→20:06)
[2022-03-22] MEDS: BuPROPion HCL XL 150 MG ER TABLET PO SCH (09:07)
[2022-03-22] MEDS: RIFAXIMIN 550 MG TABLET PO SCH ×2 (09:07→20:06)
[2022-03-22] MEDS: PANTOPRAZOLE SODIUM 40 MG/VIAL IVP SCH ×2 (09:08→20:06)
[2022-03-22] MEDS: TENOFOVIR ALAFENAMIDE 25 MG PO SCH (09:08)
[2022-03-22] MEDS: LACTULOSE 20 GM/30 ML SOLUTION UDCUP PO SCH (09:08)
[2022-03-22 09:54] LABS: INR 2.4 (0.9-1.1)
[2022-03-22] MEDS: INSULIN LISPRO 100 UNITS/ML SQ PRN ×3 (11:46→20:19)
[2022-03-22] MEDS: SODIUM CHLORIDE 0.9% 1,000 ML IV SCH (12:30)
[2022-03-22 13:46] LABS: GLUCOMETER DEV NAME(LOC) 6N.1; GLUCOSE,POINT OF CARE 245 MG/DL (70-110)
[2022-03-22 16:15] VITALS: BP 123/71
[2022-03-22 19:51] LABS: GLUCOMETER DEV NAME(LOC) 6N.1; GLUCOSE,POINT OF CARE 189 MG/DL (70-110)
[2022-03-22] MEDS: TraZODone HCL 50 MG TABLET PO SCH (20:06)
[2022-03-22] MEDS: INSULIN GLARGINE,HUM.REC.ANLOG 100 UNITS/ML SQ SCH (20:20)
[2022-03-22 21:14] VITALS: BP 124/70
[2022-03-23 00:31] LABS: GLUCOMETER DEV NAME(LOC) 6N.2; GLUCOSE,POINT OF CARE 145 MG/DL (70-110)
[2022-03-23 05:01] VITALS: BP 112/64
[2022-03-23] MEDS: INSULIN LISPRO 100 UNITS/ML SQ PRN ×3 (06:01→18:04)
[2022-03-23 06:55] LABS: INR 2.4 (0.9-1.1); PROTHROMBIN TIME 24.6 SEC (9.4-11.6)
[2022-03-23 07:16] LABS: GLUCOMETER DEV NAME(LOC) 6N.1; GLUCOSE,POINT OF CARE 190 MG/DL (70-110)
[2022-03-23 08:56] VITALS: BP 133/70
[2022-03-23] MEDS: OLANZapine 5 MG TABLET PO SCH ×2 (09:35→20:18)
[2022-03-23] MEDS: PANTOPRAZOLE SODIUM 40 MG/VIAL IVP SCH ×2 (09:35→20:18)
[2022-03-23] MEDS: TENOFOVIR ALAFENAMIDE 25 MG PO SCH (09:35)
[2022-03-23] MEDS: BuPROPion HCL XL 150 MG ER TABLET PO SCH (09:35)
[2022-03-23] MEDS: LACTULOSE 20 GM/30 ML SOLUTION UDCUP PO SCH (09:35)
[2022-03-23] MEDS: RIFAXIMIN 550 MG TABLET PO SCH ×2 (09:35→20:18)
[2022-03-23] MEDS: SODIUM CHLORIDE 0.9% 1,000 ML IV SCH (12:30)
[2022-03-23 12:50] LABS: GLUCOMETER DEV NAME(LOC) 6N.2; GLUCOSE,POINT OF CARE 213 MG/DL (70-110)
[2022-03-23 15:25] VITALS: BP 112/59
[2022-03-23 18:07] LABS: GLUCOMETER DEV NAME(LOC) 6N.2; GLUCOSE,POINT OF CARE 151 MG/DL (70-110)
[2022-03-23 19:30] VITALS: BP 111/53
[2022-03-23] MEDS: TraZODone HCL 50 MG TABLET PO SCH (20:18)
[2022-03-23] MEDS: INSULIN GLARGINE,HUM.REC.ANLOG 100 UNITS/ML SQ SCH (20:22)
[2022-03-23 22:06] LABS: GLUCOMETER DEV NAME(LOC) 6N.1; GLUCOSE,POINT OF CARE 138 MG/DL (70-110)
[2022-03-24 04:38] VITALS: BP 111/61
[2022-03-24] MEDS: INSULIN LISPRO 100 UNITS/ML SQ PRN ×2 (05:24→12:39)
[2022-03-24 06:39] LABS: CALCIUM, TOTAL 8.8 mg/dL (8.8-10.5); CREATININE 2.19 mg/dL (0.60-1.30); MAGNESIUM 1.8 mg/dL (1.80-2.40); PHOSPHORUS 2.8 mg/dL (2.5-4.9); POTASSIUM 4.5 mmol/L (3.5-5.1)
[2022-03-24 07:41] LABS: GLUCOMETER DEV NAME(LOC) 6N.2; GLUCOSE,POINT OF CARE 159 MG/DL (70-110)
[2022-03-24 08:18] VITALS: BP 114/58
[2022-03-24] MEDS: BuPROPion HCL XL 150 MG ER TABLET PO SCH (09:02)
[2022-03-24] MEDS: PANTOPRAZOLE SODIUM 40 MG/VIAL IVP SCH ×2 (09:02→21:01)
[2022-03-24] MEDS: RIFAXIMIN 550 MG TABLET PO SCH ×2 (09:02→21:12)
[2022-03-24] MEDS: TENOFOVIR ALAFENAMIDE 25 MG PO SCH (09:02)
[2022-03-24] MEDS: LACTULOSE 20 GM/30 ML SOLUTION UDCUP PO SCH (09:02)
[2022-03-24] MEDS: OLANZapine 5 MG TABLET PO SCH ×2 (09:02→20:55)
[2022-03-24 13:21] LABS: GLUCOMETER DEV NAME(LOC) 6N.1; GLUCOSE,POINT OF CARE 188 MG/DL (70-110)
[2022-03-24] MEDS: SODIUM CHLORIDE 0.9% 1,000 ML IV SCH (13:24)
[2022-03-24 15:41] VITALS: BP 114/53
[2022-03-24 19:11] LABS: GLUCOMETER DEV NAME(LOC) 6N.2; GLUCOSE,POINT OF CARE 130 MG/DL (70-110)
[2022-03-24 20:17] VITALS: BP 107/58
[2022-03-24] MEDS: TraZODone HCL 50 MG TABLET PO SCH (20:55)
[2022-03-24] MEDS: INSULIN GLARGINE,HUM.REC.ANLOG 100 UNITS/ML SQ SCH (21:18)
[2022-03-24 23:31] LABS: GLUCOMETER DEV NAME(LOC) 6N.1; GLUCOSE,POINT OF CARE 127 MG/DL (70-110)
[2022-03-25 04:47] VITALS: BP 104/50
[2022-03-25 07:46] LABS: GLUCOMETER DEV NAME(LOC) 6N.1; GLUCOSE,POINT OF CARE 114 MG/DL (70-110)
[2022-03-25 07:59] VITALS: BP 112/55
[2022-03-25] MEDS: LACTULOSE 20 GM/30 ML SOLUTION UDCUP PO SCH (08:12)
[2022-03-25] MEDS: RIFAXIMIN 550 MG TABLET PO SCH ×2 (08:13→21:33)
[2022-03-25] MEDS: BuPROPion HCL XL 150 MG ER TABLET PO SCH (08:13)
[2022-03-25] MEDS: TENOFOVIR ALAFENAMIDE 25 MG PO SCH (08:13)
[2022-03-25] MEDS: OLANZapine 5 MG TABLET PO SCH ×2 (08:13→21:33)
[2022-03-25] MEDS: PANTOPRAZOLE SODIUM 40 MG/VIAL IVP SCH ×2 (08:13→21:33)
[2022-03-25] MEDS: SODIUM CHLORIDE 0.9% 1,000 ML IV SCH (08:21)
[2022-03-25] MEDS: ALBUMIN HUMAN 25%-25GM/100ML 100 ML IV SCH ×2 (11:40→21:57)
[2022-03-25] MEDS: INSULIN LISPRO 100 UNITS/ML SQ PRN ×2 (11:40→21:48)
[2022-03-25 11:41] LABS: GLUCOMETER DEV NAME(LOC) 6N.1; GLUCOSE,POINT OF CARE 214 MG/DL (70-110)
[2022-03-25 16:00] VITALS: BP 105/52
[2022-03-25 19:36] VITALS: BP 111/57
[2022-03-25 19:56] LABS: GLUCOMETER DEV NAME(LOC) 6N.1; GLUCOSE,POINT OF CARE 124 MG/DL (70-110)
[2022-03-25] MEDS: TraZODone HCL 50 MG TABLET PO SCH (21:33)
[2022-03-25] MEDS: IBUPROFEN 400 MG TABLET PO PRN (21:33)
[2022-03-25] MEDS: INSULIN GLARGINE,HUM.REC.ANLOG 100 UNITS/ML SQ SCH (21:49)
[2022-03-26] VITALS (9 sets, daily range): BP systolic 62–103; BP diastolic 35–62
[2022-03-26 01:56] LABS: GLUCOMETER DEV NAME(LOC) 6N.1; GLUCOSE,POINT OF CARE 277 MG/DL (70-110)
[2022-03-26] MEDS: DEXTROSE 50%-WATER 25 GM/50 ML SYRINGE IVP PRN (06:02)
[2022-03-26] MEDS ORDERED: SODIUM CHLORIDE 0.9% 500 ML IV ONE ×3 (06:49→07:00)
[2022-03-26 07:20] LABS: CALCIUM, TOTAL 8.3 mg/dL (8.8-10.5); CREATININE 3.05 mg/dL (0.60-1.30); POTASSIUM 4.4 mmol/L (3.5-5.1)
[2022-03-26 07:25] LABS: GLUCOMETER DEV NAME(LOC) 6N.2; GLUCOSE,POINT OF CARE 40 MG/DL (70-110)
[2022-03-26 07:25] LABS: GLUCOMETER DEV NAME(LOC) 6N.2; GLUCOSE,POINT OF CARE 179 MG/DL (70-110)
[2022-03-26 07:26] LABS: GLUCOMETER DEV NAME(LOC) 6N.2; GLUCOSE,POINT OF CARE 139 MG/DL (70-110)
[2022-03-26 07:35] LABS: ALBUMIN 2.6 g/dL (3.4-5.0); BILIRUBIN,TOTAL 31.2 mg/dL (0.1-1.0); TOTAL PROTEIN, SERUM 6.7 g/dL (6.4-8.2)
[2022-03-26] MEDS: LACTULOSE 20 GM/30 ML SOLUTION UDCUP PO SCH (08:51)
[2022-03-26] MEDS: OLANZapine 5 MG TABLET PO SCH ×2 (08:51→21:24)
[2022-03-26] MEDS: TENOFOVIR ALAFENAMIDE 25 MG PO SCH (08:51)
[2022-03-26] MEDS: PANTOPRAZOLE SODIUM 40 MG/VIAL IVP SCH ×2 (08:51→21:23)
[2022-03-26] MEDS: BuPROPion HCL XL 150 MG ER TABLET PO SCH (08:51)
[2022-03-26] MEDS: RIFAXIMIN 550 MG TABLET PO SCH ×2 (08:51→21:24)
[2022-03-26] MEDS ORDERED: SODIUM CHLORIDE 0.9% 1,000 ML IV ONE (10:30)
[2022-03-26] MEDS: ALBUMIN HUMAN 25%-25GM/100ML 100 ML IV SCH ×2 (11:40→21:47)
[2022-03-26] MEDS: INSULIN LISPRO 100 UNITS/ML SQ PRN ×3 (12:00→21:38)
[2022-03-26 19:41] LABS: GLUCOMETER DEV NAME(LOC) 6N.1; GLUCOSE,POINT OF CARE 244 MG/DL (70-110)
[2022-03-26 19:41] LABS: GLUCOMETER DEV NAME(LOC) 6N.2; GLUCOSE,POINT OF CARE 198 MG/DL (70-110)
[2022-03-26] MEDS: TraZODone HCL 50 MG TABLET PO SCH (21:24)
[2022-03-26] MEDS: INSULIN GLARGINE,HUM.REC.ANLOG 100 UNITS/ML SQ SCH (21:35)
[2022-03-26] MEDS: IBUPROFEN 400 MG TABLET PO PRN (21:43)
[2022-03-26 22:51] LABS: GLUCOMETER DEV NAME(LOC) 6N.1; GLUCOSE,POINT OF CARE 276 MG/DL (70-110)
[2022-03-27 04:00] VITALS: BP 101/48
[2022-03-27 05:32] LABS: CALCIUM, TOTAL 8.5 mg/dL (8.8-10.5); CREATININE 3.22 mg/dL (0.60-1.30); POTASSIUM 4.7 mmol/L (3.5-5.1)
[2022-03-27 05:41] LABS: BILIRUBIN,DIRECT 23.2 mg/dL (0.00-0.20); BILIRUBIN,TOTAL 33.8 mg/dL (0.1-1.0)
[2022-03-27 07:36] LABS: GLUCOMETER DEV NAME(LOC) 6N.2; GLUCOSE,POINT OF CARE 139 MG/DL (70-110)
[2022-03-27 08:04] VITALS: BP 98/53
[2022-03-27] MEDS: RIFAXIMIN 550 MG TABLET PO SCH ×2 (08:49→21:26)
[2022-03-27] MEDS: PANTOPRAZOLE SODIUM 40 MG/VIAL IVP SCH ×2 (08:49→21:25)
[2022-03-27] MEDS: IBUPROFEN 400 MG TABLET PO PRN (08:49)
[2022-03-27] MEDS: OLANZapine 5 MG TABLET PO SCH ×2 (08:49→21:25)
[2022-03-27] MEDS: TENOFOVIR ALAFENAMIDE 25 MG PO SCH (08:49)
[2022-03-27] MEDS: BuPROPion HCL XL 150 MG ER TABLET PO SCH (08:49)
[2022-03-27] MEDS: LACTULOSE 20 GM/30 ML SOLUTION UDCUP PO SCH (08:51)
[2022-03-27] MEDS: ALBUMIN HUMAN 25%-25GM/100ML 100 ML IV SCH ×2 (11:25→23:38)
[2022-03-27] MEDS ORDERED: HYDROCODONE/ACETAMINOPHEN 5-325 MG TABLET PO PRN ×2 (13:45)
[2022-03-27 15:37] VITALS: BP 102/51
[2022-03-27] MEDS: INSULIN LISPRO 100 UNITS/ML SQ PRN ×2 (17:48→21:38)
[2022-03-27 20:36] LABS: GLUCOMETER DEV NAME(LOC) 6N.2; GLUCOSE,POINT OF CARE 229 MG/DL (70-110)
[2022-03-27 21:00] VITALS: BP 96/43
[2022-03-27] MEDS: TraZODone HCL 50 MG TABLET PO SCH (21:26)
[2022-03-27] MEDS: INSULIN GLARGINE,HUM.REC.ANLOG 100 UNITS/ML SQ SCH (21:39)
[2022-03-28 02:05] LABS: GLUCOMETER DEV NAME(LOC) 6N.1; GLUCOSE,POINT OF CARE 172 MG/DL (70-110)
[2022-03-28 04:15] VITALS: BP 104/53
[2022-03-28 06:14] LABS: CALCIUM, TOTAL 8.9 mg/dL (8.8-10.5); CREATININE 3.97 mg/dL (0.60-1.30); MAGNESIUM 2.2 mg/dL (1.80-2.40); PHOSPHORUS 4.1 mg/dL (2.5-4.9); POTASSIUM 5.1 mmol/L (3.5-5.1)
[2022-03-28] MEDS: INSULIN LISPRO 100 UNITS/ML SQ PRN ×2 (06:25→11:57)
[2022-03-28] MEDS: RIFAXIMIN 550 MG TABLET PO SCH ×2 (09:43→21:00)
[2022-03-28] MEDS: OLANZapine 5 MG TABLET PO SCH ×2 (09:43→21:00)
[2022-03-28] MEDS: BuPROPion HCL XL 150 MG ER TABLET PO SCH (09:43)
[2022-03-28] MEDS: TENOFOVIR ALAFENAMIDE 25 MG PO SCH (09:44)
[2022-03-28] MEDS: LACTULOSE 20 GM/30 ML SOLUTION UDCUP PO SCH (09:44)
[2022-03-28 12:00] VITALS: BP 90/51
[2022-03-28 15:18] VITALS: BP 95/4
[2022-03-28 18:51] LABS: GLUCOMETER DEV NAME(LOC) 6N.2; GLUCOSE,POINT OF CARE 180 MG/DL (70-110)
[2022-03-28 18:51] LABS: GLUCOMETER DEV NAME(LOC) 6N.1; GLUCOSE,POINT OF CARE 142 MG/DL (70-110)
[2022-03-28 18:51] LABS: GLUCOMETER DEV NAME(LOC) 6N.1; GLUCOSE,POINT OF CARE 159 MG/DL (70-110)
[2022-03-28 20:20] VITALS: BP 91/51
[2022-03-28] MEDS: INSULIN GLARGINE,HUM.REC.ANLOG 100 UNITS/ML SQ SCH (21:00)
[2022-03-28] MEDS: TraZODone HCL 50 MG TABLET PO SCH (21:00)
[2022-03-29] VITALS (12 sets, daily range): BP systolic 85–105; BP diastolic 43–54
[2022-03-29 06:27] LABS: GLUCOMETER DEV NAME(LOC) 6N.1; GLUCOSE,POINT OF CARE 143 MG/DL (70-110)
[2022-03-29 06:53] LABS: BASOPHILS % (AUTO) 0.5 % (0.0-2.0); EOSINOPHILS % (AUTO) 1.4 % (1.0-6.0); LYMPHOCYTES # (AUTO) 0.6 K/uL (1.0-4.8); MEAN CORPUSCULAR HGB CONC 35.5 G/dL (31.0-37.0); MEAN CORPUSCULAR VOLUME 87 fL (80-100); MONOCYTES # (AUTO) 0.5 K/uL (0.1-1.0); MONOCYTES % (AUTO) 10.4 % (2.0-9.0); NEUTROPHILS # (AUTO) 3.6 K/uL (1.8-7.7); NEUTROPHILS % (AUTO) 75.7 % (40.0-70.0); PLATELET COUNT (AUTO) 26 K/uL (150-450); RED BLOOD CELL COUNT(AUTO) 2.03 MIL/uL (4.00-5.20); RED CELL DISTRIBUTION WIDTH 19.6 % (11.5-14.5)
[2022-03-29 07:03] LABS: ALBUMIN 3.1 g/dL (3.4-5.0); CALCIUM, TOTAL 9.1 mg/dL (8.8-10.5); CREATININE 4.57 mg/dL (0.60-1.30); MAGNESIUM 2.3 mg/dL (1.80-2.40); PHOSPHORUS 4.5 mg/dL (2.5-4.9); POTASSIUM 5.6 mmol/L (3.5-5.1)
[2022-03-29 07:04] LABS: BILIRUBIN,TOTAL 35.1 mg/dL (0.1-1.0)
[2022-03-29 07:08] LABS: HEMOGLOBIN 6.3 g/dL (12.0-16.0)
[2022-03-29 07:10] LABS: HEMATOCRIT 17.8 % (36-46)
[2022-03-29 07:24] LABS: TOTAL PROTEIN, SERUM 7.5 g/dL (6.4-8.2)
[2022-03-29] MEDS ORDERED: SODIUM ZIRCONIUM CYCLOSILICATE 5 GM POWDER PACKET PO ONE (08:15)
[2022-03-29] MEDS: TENOFOVIR ALAFENAMIDE 25 MG PO SCH (09:34)
[2022-03-29] MEDS: OLANZapine 5 MG TABLET PO SCH ×2 (09:35→21:00)
[2022-03-29] MEDS: BuPROPion HCL XL 150 MG ER TABLET PO SCH (09:35)
[2022-03-29] MEDS: LACTULOSE 20 GM/30 ML SOLUTION UDCUP PO SCH (09:35)
[2022-03-29] MEDS: PANTOPRAZOLE SODIUM 40 MG DR TABLET PO SCH (09:35)
[2022-03-29] MEDS: RIFAXIMIN 550 MG TABLET PO SCH ×2 (09:35→21:00)
[2022-03-29] MEDS ORDERED: SODIUM CHLORIDE 0.9% 250 ML IV ONE (11:50)
[2022-03-29 20:16] LABS: GLUCOMETER DEV NAME(LOC) 6N.1; GLUCOSE,POINT OF CARE 92 MG/DL (70-110)
[2022-03-29] MEDS: TraZODone HCL 50 MG TABLET PO SCH (21:00)
[2022-03-29] MEDS: INSULIN GLARGINE,HUM.REC.ANLOG 100 UNITS/ML SQ SCH (21:00)
[2022-03-29] MEDS: CITRIC ACID/SODIUM CITRATE 30 ML SOLUTION UDCUP PO SCH (21:00)
[2022-03-29] MEDS: DEXTROSE 50%-WATER 25 GM/50 ML SYRINGE IVP PRN (21:17)
[2022-03-30 01:06] LABS: GLUCOMETER DEV NAME(LOC) 6N.1; GLUCOSE,POINT OF CARE 69 MG/DL (70-110)
[2022-03-30 04:00] VITALS: BP 91/53
[2022-03-30 06:27] LABS: GLUCOMETER DEV NAME(LOC) 6N.2; GLUCOSE,POINT OF CARE 71 MG/DL (70-110)
[2022-03-30 08:21] VITALS: BP 91/50
[2022-03-30] MEDS: PANTOPRAZOLE SODIUM 40 MG DR TABLET PO SCH (09:00)
[2022-03-30] MEDS: RIFAXIMIN 550 MG TABLET PO SCH (09:00)
[2022-03-30] MEDS: OLANZapine 5 MG TABLET PO SCH (09:00)
[2022-03-30] MEDS: CITRIC ACID/SODIUM CITRATE 30 ML SOLUTION UDCUP PO SCH (09:00)
[2022-03-30] MEDS: LACTULOSE 20 GM/30 ML SOLUTION UDCUP PO SCH (09:00)
[2022-03-30] MEDS: TENOFOVIR ALAFENAMIDE 25 MG PO SCH (09:00)
[2022-03-30] MEDS: BuPROPion HCL XL 150 MG ER TABLET PO SCH (09:00)
[2022-03-30] MEDS ORDERED: LACT10SO10 PO (11:08)
[2022-03-30] MEDS ORDERED: PANT-31 PO (11:08)
[2022-03-30] MEDS ORDERED: TENO25TA PO (11:10)
[2022-03-30 11:40] LABS: COVID AG,FIA SOURCE NASOPHARYNGEAL
[2022-03-30] MEDS: DEXTROSE 50%-WATER 25 GM/50 ML SYRINGE IVP PRN (11:47)
[2022-03-30 13:16] LABS: GLUCOMETER DEV NAME(LOC) 6N.1; GLUCOSE,POINT OF CARE 120 MG/DL (70-110)
[2022-03-30 13:16] LABS: GLUCOMETER DEV NAME(LOC) 6N.1; GLUCOSE,POINT OF CARE 55 MG/DL (70-110)
[2022-03-30 15:22] VITALS: BP 96/60
== END 2022-03-30 15:40 | disposition hospice, home (50) | DRG 279 ==
LOC: EMS 23:22 → 6S 03-05 06:05 → EMS 03-05 06:42 → 6N 03-22 12:27
PROVIDERS: ADMIT Internal Medicine; ATTEND Internal Medicine
PROC: 30233N1 Transfusion of Nonautologous Red Blood Cells into Peripheral Vein, Percutaneous Approach (ICD-10-PCS; 2022-03-15)
PROC: 0DJ08ZZ Inspection of Upper Intestinal Tract, Via Natural or Artificial Opening Endoscopic (ICD-10-PCS; principal; 2022-03-16 14:30)
DX: K72.00 Acute and subacute hepatic failure without coma (principal); G06.1 Intraspinal abscess and granuloma; G93.40 Encephalopathy, unspecified; K68.12 Psoas muscle abscess; M00.9 Pyogenic arthritis, unspecified; D69.6 Thrombocytopenia, unspecified; E87.2 Acidosis; E11.649 Type 2 diabetes mellitus with hypoglycemia without coma; B16.9 Acute hepatitis B without delta-agent and without hepatic coma; N17.9 Acute kidney failure, unspecified; I85.10 Secondary esophageal varices without bleeding; K76.6 Portal hypertension; R79.89 Other specified abnormal findings of blood chemistry; E11.69 Type 2 diabetes mellitus with other specified complication; K74.60 Unspecified cirrhosis of liver; M46.26 Osteomyelitis of vertebra, lumbar region; B95.62 Methicillin resistant Staphylococcus aureus infection as the cause of diseases classified elsewhere; B96.89 Other specified bacterial agents as the cause of diseases classified elsewhere; D64.9 Anemia, unspecified; F20.9 Schizophrenia, unspecified; M46.46 Discitis, unspecified, lumbar region; N39.0 Urinary tract infection, site not specified; Z53.20 Procedure and treatment not carried out because of patient's decision for unspecified reasons; B18.1 Chronic viral hepatitis B without delta-agent; E87.5 Hyperkalemia; K31.89 Other diseases of stomach and duodenum; Z20.822 Contact with and (suspected) exposure to COVID-19; E11.22 Type 2 diabetes mellitus with diabetic chronic kidney disease; R18.8 Other ascites; K80.20 Calculus of gallbladder without cholecystitis without obstruction; M19.90 Unspecified osteoarthritis, unspecified site; Z66 Do not resuscitate; N18.9 Chronic kidney disease, unspecified; Z79.899 Other long term (current) drug therapy; Z91.19 Patient's noncompliance with other medical treatment and regimen; Z87.891 Personal history of nicotine dependence; Z79.4 Long term (current) use of insulin; Z86.14 Personal history of Methicillin resistant Staphylococcus aureus infection; Z86.61 Personal history of infections of the central nervous system
CPT/HCPCS: 71045; 74183; 76705; 76770; 78226; 80048; 80053; 80074; 80076; 80202; 80307; 81001; 82105; 82140; 82247; 82248; 82271; 82390; 82533; 82550; 82570; 82728; 82784; 82962; 83010; 83516; 83540; 83550; 83690; 83735; 84100; 84155; 84165; 84300; 84439; 84443; 84460; 84540; 85014; 85018; 85025; 85610; 85730; 86038; 86692; 86704; 86706; 86707; 86709; 86850; 86870; 86900; 86901; 86921; 86922; 87040; 87077; 87081; 87086; 87205; 87350; 87517; 97162; 99285; A9537; C9113; G0481; J0713; J1644; J1815; J2270; J2354; J2405; J2704; J3370; J3490; J7030; J7040; J7050; J7060; J7510; P9016; P9046; Q9967; 36415-L1; 36415-TC; G0480